=== PATIENT | female | born 1940 | race Caucasian/White ===

== ENCOUNTER → 2016-08-25 | Outpatient (REF) | payer MEDICARE ==
[~2016-08-25] MED LIST: /ALEN70TA; ACET65TA; ASPI81TA3; BABY81CH; CORD200T; PLAV75TA2; THERGRAN; ZITH500T; ZOCO20TA
[2016-08-25 12:35] LABS: ALBUMIN 3.4 GM/DL (3.2-5.2); ANION GAP 7 MEQ/L (8-16); BLOOD UREA NITROGEN 18 MG/DL (7-18); CALCIUM LEVEL 9.1 MG/DL (8.8-10.2); CARBON DIOXIDE LEVEL 30 MEQ/L (21-32); CHLORIDE LEVEL 105 MEQ/L (98-107); CREATININE FOR GFR 0.88 MG/DL (0.55-1.02); GLOMERULAR FILTRATION RATE > 60.0 (>39); GLUCOSE, FASTING 101 MG/DL (83-110); POTASSIUM SERUM 4.2 MEQ/L (3.5-5.1); SODIUM LEVEL 142 MEQ/L (136-145)
== END ==
LOC: M LABDRAW1 11:49
PROVIDERS: ATTEND Nurse Practitioner Family
DX: I48.2 Chronic atrial fibrillation (principal)

== ENCOUNTER → 2016-09-13 | Outpatient (CLI) | payer MEDICARE ==
[~2016-09-13] MED LIST changes: +CARV12.5 PO; +COLA100C5 PO; +ELIQ5TAB PO; +LEVO750T13 PO; +MACR100C43 PO; +SUCR1SS PO; +TRAM50TA2 PO; +ZOFR4TAB3 PO
--- NOTE | 2016-09-13 09:54 | REP ---
Chest two views HISTORY: Bronchiectasis Comparison: 12/24/2015 A diffuse increase in interstitial markings is present in the lungs consistent with chronic interstitial change. The cardiac silhouette is enlarged. The pulmonary vasculature is normal in appearance. The bony structure is intact. IMPRESSION: 1. Chronic interstitial change. 2. Cardiomegaly. Signed by Júnior Hunt MD 09/13/2016 09:45 A
== END ==
LOC: M SMT 09:17
PROVIDERS: ATTEND Internal Medicine Pulmonary Disease
DX: J47.9 Bronchiectasis, uncomplicated (principal); I51.7 Cardiomegaly; J84.9 Interstitial pulmonary disease, unspecified

== ENCOUNTER → 2016-09-22 | Outpatient (REF) | payer MEDICARE | LOC: M LAB REF 17:02 | PROVIDERS: ATTEND Nurse Practitioner Adult Health | DX: J47.9 Bronchiectasis, uncomplicated (principal); R05 Cough ==

== ENCOUNTER → 2016-10-08 | Outpatient (REF) | payer MEDICARE | LOC: M LAB REF 13:13 | PROVIDERS: ATTEND Nurse Practitioner Adult Health | DX: J47.9 Bronchiectasis, uncomplicated (principal) ==

== ENCOUNTER → 2016-11-05 | Outpatient (REF) | payer MEDICARE | LOC: M SFHCPLAZ 12:00 | PROVIDERS: ATTEND Internal Medicine Infectious Disease | DX: J47.1 Bronchiectasis with (acute) exacerbation (principal) ==

== ENCOUNTER 2016-11-20 18:43 | Emergency (ER) | payer MEDICARE ==
[~2016-11-20] VITALS: Ht 165.1 cm; Wt 51.9 kg
[~2016-11-20 18:43] MED LIST changes: -CARV12.5 PO; -COLA100C5 PO; -ELIQ5TAB PO; -LEVO750T13 PO; -MACR100C43 PO; -SUCR1SS PO; -TRAM50TA2 PO; -ZOFR4TAB3 PO
[2016-11-20] MEDS ORDERED: ELIQ5TAB PO (18:54)
[2016-11-20] MEDS ORDERED: LEVO750T13 PO (18:54)
[2016-11-20] MEDS ORDERED: ZOFR4TAB3 PO (18:54)
[2016-11-20] MEDS ORDERED: COLA100C5 PO (18:54)
[2016-11-20] MEDS ORDERED: SUCR1SS PO (18:54)
[2016-11-20] MEDS ORDERED: CARV12.5 PO (18:54)
[2016-11-20] MEDS ORDERED: NS 1,000 ML IV ONE (19:15)
[2016-11-20] MEDS ORDERED: ONDANSETRON 4MG/2ML VIAL (J2405) IV ONE (19:15)
[2016-11-20 19:21] LABS: BASO % 0.2 % (0.0-1.0); EOS # 0.3 K/mm3 (0.0-0.50); EOS % 2.9 % (0.0-3.0); LARGE UNSTAINED CELL # 0.1 K/mm3 (0.0-0.4); LARGE UNSTAINED CELL % 1.2 % (0.0-4.0); LYMPH # 1.1 K/mm3 (1.5-4.5); LYMPH % 11.1 % (24.0-44.0); MEAN CORPUSCULAR HEMOGLOBIN 29.6 pg (27.0-33.0); MEAN CORPUSCULAR VOLUME 87.1 fl (80.0-96.0); MONO # 0.4 K/mm3 (0.0-0.8); MONO % 4.1 % (0.0-5.0); NEUTROPHILS # 7.9 K/mm3 (1.8-7.7); NEUTROPHILS % 80.4 % (36.0-66.0); PLATELET COUNT, AUTOMATED 318 k/mm3 (150-450); RED CELL DISTRIBUTION WIDTH 13.2 % (11.5-14.5); WHITE BLOOD COUNT 9.9 K/mm3 (4.0-10.0)
[2016-11-20 19:45] LABS: ALBUMIN 3.3 GM/DL (3.2-5.2); ALBUMIN/GLOBULIN RATIO 0.89 (1.00-1.93); ALKALINE PHOSPHATASE 83 U/L (45-117); ALT/SGPT 12 U/L (12-78); AMYLASE 107 U/L (25-115); ANION GAP 11 MEQ/L (8-16); AST/SGOT 12 U/L (15-37); BILIRUBIN,DIRECT 0.3 MG/DL (0.0-0.2); BILIRUBIN,TOTAL 1.1 MG/DL (0.2-1.0); BLOOD UREA NITROGEN 11 MG/DL (7-18); CARBON DIOXIDE LEVEL 28 MEQ/L (21-32); CHLORIDE LEVEL 102 MEQ/L (98-107); CREATININE FOR GFR 0.81 MG/DL (0.55-1.02); GLOMERULAR FILTRATION RATE > 60.0 (>39); GLUCOSE, FASTING 100 MG/DL (83-110); POTASSIUM SERUM 3.3 MEQ/L (3.5-5.1); SODIUM LEVEL 141 MEQ/L (136-145)
--- NOTE | 2016-11-20 19:49 | REP ---
Clinical: Abdominal pain. Technique: Upright view of the chest with supine and upright views of the abdomen and pelvis. Findings: Frontal upright view of the chest compared to 09/13/2016 demonstrates diffuse chronic interstitial changes and fibrosis. No free air below diaphragm to suspect pneumoperitoneum. Supine and upright views of the abdomen and pelvis demonstrate nonspecific bowel gas pattern. 2 mm nonobstructing right renal calculus suggested. Phleboliths noted in the pelvis. No organomegaly. Skeletal structures demonstrate age-related degenerative changes. Impression: Nonspecific bowel gas pattern. Chronic changes as above. Signed by Kwesi Morrison MD 11/20/2016 07:40 P
[2016-11-20] MEDS ORDERED: MACR100C43 PO (20:00)
[2016-11-20] MEDS ORDERED: MAGNESIUM CITRATE 300 ML BTL PO ONE (20:00)
[2016-11-20] MEDS ORDERED: NITROFURANTOIN (MACROBID) 100 MG CAP PO ONE (20:00)
[2016-11-20] MEDS ORDERED: TRAM50TA2 PO (20:00)
[2016-11-20 20:06] VITALS: BP 135/66
== END 2016-11-20 20:17 | disposition home or self-care (01) ==
LOC: M ED 18:43
DX: N39.0 Urinary tract infection, site not specified (principal); R63.0 Anorexia; I51.9 Heart disease, unspecified; Z79.899 Other long term (current) drug therapy; Z86.73 Personal history of transient ischemic attack (TIA), and cerebral infarction without residual deficits
CPT/HCPCS: 74022; 80048; 80076; 81001; 82150; 83690; 85025; 87086; 96374; 99283; J2405

== ENCOUNTER → 2017-02-14 | Outpatient (REF) | payer MEDICARE ==
[~2017-02-14] MED LIST changes: +CARV12.5 PO; +COLA100C5 PO; +ELIQ5TAB PO; +LEVO750T13 PO; +MACR100C43 PO; +SUCR1SS PO; +TRAM50TA2 PO; +ZOFR4TAB3 PO
[2017-02-14 12:10] LABS: MEAN CORPUSCULAR HEMOGLOBIN 29.1 pg (27.0-33.0); MEAN CORPUSCULAR HGB CONC 31.2 g/dl (32.0-36.5); MEAN CORPUSCULAR VOLUME 93.3 fl (80.0-96.0); PLATELET COUNT, AUTOMATED 288 10^3/uL (150-450); RED CELL DISTRIBUTION WIDTH 14.9 % (11.5-14.5); WHITE BLOOD COUNT 7.4 10^3/uL (4.0-10.0)
[2017-02-14 12:59] LABS: ALBUMIN 3.6 GM/DL (3.2-5.2); ALKALINE PHOSPHATASE 80 U/L (45-117); ALT/SGPT 16 U/L (12-78); ANION GAP 7 MEQ/L (8-16); AST/SGOT 18 U/L (7-37); BILIRUBIN,TOTAL 0.6 MG/DL (0.2-1.0); BLOOD UREA NITROGEN 14 MG/DL (7-18); CALCIUM LEVEL 9.3 MG/DL (8.8-10.2); CARBON DIOXIDE LEVEL 31 MEQ/L (21-32); CHLORIDE LEVEL 105 MEQ/L (98-107); CHOLESTEROL LEVEL 177 MG/DL (<200); CREATININE FOR GFR 0.83 MG/DL (0.55-1.02); GLOMERULAR FILTRATION RATE > 60.0 (>39); GLUCOSE, FASTING 82 MG/DL (83-110); POTASSIUM SERUM 4.2 MEQ/L (3.5-5.1); SODIUM LEVEL 143 MEQ/L (136-145); TOTAL PROTEIN 7.2 GM/DL (6.4-8.2); TRIGLYCERIDES LEVEL 193 MG/DL (<150)
== END ==
LOC: M SFHCPLAZ 09:03
PROVIDERS: ATTEND Internal Medicine
DX: E78.00 Pure hypercholesterolemia, unspecified (principal); J47.9 Bronchiectasis, uncomplicated; R94.6 Abnormal results of thyroid function studies; M81.0 Age-related osteoporosis without current pathological fracture

== ENCOUNTER → 2017-02-25 | Outpatient (CLI) | payer MEDICARE ==
--- NOTE | 2017-02-25 08:31 | REPMRS ---
Patient History The patient states she has not had a clinical breast exam in over a year. Patient is postmenopausal. No known family history of cancer. Digital Woman Screen Mammo: February 25, 2017 - Exam #: [id number] Bilateral CC and MLO view(s) were taken. Technologist: Layne Monterroso, Technologist Prior study comparison: October 15, 2015, digital woman screen mammo performed at [facility]. October 11, 2014, digital woman screen mammo performed at [facility]. February 09, 2013, digital woman screen mammo performed at [facility]. FINDINGS: There are scattered fibroglandular densities. There is a pacemaker power plant projecting over the left axilla on the MLO view.There has been no change in the appearance of the mammogram from the prior studies. There is a mild amount of scattered fibroglandular density which is fairly symmetric. There is no interval development of dominant mass, architectural distortion, or clustered microcalcification suggestive of malignancy. ASSESSMENT: BI-RADS/ACR category 2 mammogram. Benign finding(s). Recommendation Routine screening mammogram in 1 year (for women over age 40). This mammogram was interpreted with the aid of an FDA-approved computer-aided dectection system. Electronically Signed By: Emre Bocanegra MD 02/25/17 [id number]
--- NOTE | 2017-03-02 10:52 | DEXA ---
AP SPINE L1 - L4 1.173 -0.2 1.6 LT FEMUR TOTAL 0.899 -0.9 0.9 RT FEMUR TOTAL 0.807 -1.6 0.1 TOTAL BODY TOTAL OTHER COMMENTS: Normal bone densitometry of the spine. Normal bone densitometry of the left hip. There is low bone density of the right hip. The decreased density of the spine does represent a significant change. The decreased density of the left hip does represent a significant change. The decreased density of the right hip does represent a significant change. The density of the spine is decreased 5.9% since the initial exam on 07/26/2000. The spine density has decreased 5.9% since the most recent exam on 09/01/2010. The density of the left hip has decreased 9.9% since the initial exam on 2000. The density of the left hip has decreased 9.7% since the most recent exam on . The density of the right hip has decreased 16.0% since the initial exam on 07/26. The density of the right hip has decreased 11.7% since the most recent exam on 09/01/2010. FOLLOW-UP: Recommendation for the next bone density exam: 2 years. GILBERTO
== END ==
LOC: M WHC 07:52
PROVIDERS: ATTEND Internal Medicine
DX: Z12.31 Encounter for screening mammogram for malignant neoplasm of breast (principal); Z78.0 Asymptomatic menopausal state; Z79.52 Long term (current) use of systemic steroids
CPT/HCPCS: 77080; G0202

== ENCOUNTER → 2017-12-12 | Outpatient (REF) | payer MEDICARE ==
[2017-12-12 11:17] LABS: HEMATOCRIT 42.5 % (36.0-47.0); HEMOGLOBIN 13.4 g/dl (12.0-15.5); MEAN CORPUSCULAR HEMOGLOBIN 29.3 pg (27.0-33.0); MEAN CORPUSCULAR HGB CONC 31.5 g/dl (32.0-36.5); PLATELET COUNT, AUTOMATED 304 10^3/uL (150-450); RED BLOOD COUNT 4.57 10^6/uL (4.00-5.40); RED CELL DISTRIBUTION WIDTH 14.1 % (11.5-14.5); WHITE BLOOD COUNT 9.1 10^3/uL (4.0-10.0)
[2017-12-12 12:00] LABS: ALBUMIN/GLOBULIN RATIO 0.81 (1.00-1.93); ALKALINE PHOSPHATASE 67 U/L (45-117); ALT/SGPT 20 U/L (12-78); ANION GAP 8 MEQ/L (8-16); AST/SGOT 15 U/L (7-37); BLOOD UREA NITROGEN 12 MG/DL (7-18); CALCIUM LEVEL 8.7 MG/DL (8.8-10.2); CARBON DIOXIDE LEVEL 29 MEQ/L (21-32); CHLORIDE LEVEL 106 MEQ/L (98-107); CREATININE FOR GFR 0.84 MG/DL (0.55-1.30); GLOMERULAR FILTRATION RATE > 60.0 (>39); GLUCOSE, FASTING 76 MG/DL (70-100); POTASSIUM SERUM 3.9 MEQ/L (3.5-5.1); SODIUM LEVEL 143 MEQ/L (136-145); TOTAL PROTEIN 6.7 GM/DL (6.4-8.2)
[2017-12-13 14:16] LABS: Lyme Disease IgG/IgM Antibodie <0.91 ISR (0.00-0.90); Lyme Disease IgM Ab Quantitati <0.80 index (0.00-0.79)
== END ==
LOC: M LABDRAW1 10:55
DX: R53.83 Other fatigue (principal)
CPT/HCPCS: 84443

== ENCOUNTER → 2017-12-15 | Outpatient (CLI) | payer MEDICARE | LOC: M RAD 06:44 | DX: R91.8 Other nonspecific abnormal finding of lung field (principal); J47.9 Bronchiectasis, uncomplicated; J98.4 Other disorders of lung | CPT/HCPCS: 71250 ==

== ENCOUNTER → 2018-03-08 | Outpatient (CLI) | payer MEDICARE ==
[~2018-03-08] MED LIST changes: +ZOFR4TAB14 PO; -ZOFR4TAB3 PO
--- NOTE | 2018-03-08 10:28 | REPMRS ---
Patient History The patient states she had a clinical breast exam in 09/2017. Patient is postmenopausal. No known family history of cancer. No Hormone Replacement Therapy Digital Woman Screen Mammo: March 08, 2018 - Exam #: [id number] Bilateral CC and MLO view(s) were taken. Technologist: Marcie Elmore, Technologist Prior study comparison: February 25, 2017, digital woman screen mammo performed at [facility]. October 15, 2015, digital woman screen mammo performed at [facility]. October 11, 2014, digital woman screen mammo performed at [facility]. FINDINGS: There are scattered fibroglandular densities. There is a pacemaker power plant projecting over the left axilla on the MLO view. There has been no change in the appearance of the mammogram from the prior studies. There is a mild amount of scattered fibroglandular density which is fairly symmetric. There is no interval development of dominant mass, architectural distortion, or clustered microcalcification suggestive of malignancy. 3-D tomosynthesis shows no additional findings. Assessment: BI-RADS/ACR category 2 mammogram. Benign finding(s). Recommendation Routine screening mammogram of both breasts in 1 year (for women over age 40). This patient's Lifetime Breast Cancer RIsk is estimated at 2.7 %. This mammogram was interpreted with the aid of an FDA-approved computer-aided dectection system. Electronically Signed By: Emre Bocanegra MD 03/08/18 [id number]
== END ==
LOC: M WHC 09:24
PROVIDERS: ATTEND Obstetrics & Gynecology
DX: Z12.31 Encounter for screening mammogram for malignant neoplasm of breast (principal); Z78.0 Asymptomatic menopausal state; Z95.0 Presence of cardiac pacemaker

== ENCOUNTER → 2018-11-14 | Outpatient (REF) | payer MEDICARE ==
[2018-11-14 10:31] LABS: HEMATOCRIT 42.1 % (36.0-47.0); HEMOGLOBIN 13.1 g/dl (12.0-15.5); MEAN CORPUSCULAR HEMOGLOBIN 29.1 pg (27.0-33.0); MEAN CORPUSCULAR HGB CONC 31.1 g/dl (32.0-36.5); MEAN CORPUSCULAR VOLUME 93.6 fl (80.0-96.0); PLATELET COUNT, AUTOMATED 298 10^3/uL (150-450); WHITE BLOOD COUNT 7.8 10^3/uL (4.0-10.0)
[2018-11-14 11:05] LABS: ALBUMIN 3.2 GM/DL (3.2-5.2); ALT/SGPT 14 U/L (12-78); BILIRUBIN,TOTAL 0.6 MG/DL (0.2-1.0); BLOOD UREA NITROGEN 20 MG/DL (7-18); CALCIUM LEVEL 9.2 MG/DL (8.8-10.2); CARBON DIOXIDE LEVEL 31 MEQ/L (21-32); CHLORIDE LEVEL 106 MEQ/L (98-107); CHOLESTEROL LEVEL 145 MG/DL (<200); CHOLESTEROL RISK RATIO 2.377 (<5); CREATININE FOR GFR 0.81 MG/DL (0.55-1.30); GLOMERULAR FILTRATION RATE > 60.0 (>39); GLUCOSE, FASTING 88 MG/DL (70-100); HDL CHOLESTEROL 61 MG/DL (>40); LDL CHOLESTEROL 58 MG/DL (<100); MAGNESIUM LEVEL 2.2 MG/DL (1.8-2.4); NON-HDL-C 84 MG/DL; POTASSIUM SERUM 4.1 MEQ/L (3.5-5.1); SODIUM LEVEL 143 MEQ/L (136-145); TOTAL PROTEIN 6.7 GM/DL (6.4-8.2); TRIGLYCERIDES LEVEL 131 MG/DL (<150)
[2018-11-14 11:23] LABS: TOTAL 25(OH) VITAMIN D 26.8 NG/ML (30.0-100.0)
== END ==
LOC: M SFHCPLAZ 08:26
PROVIDERS: ATTEND Internal Medicine
DX: R53.83 Other fatigue (principal); E78.00 Pure hypercholesterolemia, unspecified; I49.5 Sick sinus syndrome; M81.0 Age-related osteoporosis without current pathological fracture

== ENCOUNTER → 2019-05-10 | Outpatient (REF) | payer MEDICARE ==
[2019-05-10 10:22] LABS: HEMATOCRIT 41.9 % (36.0-47.0); MEAN CORPUSCULAR HEMOGLOBIN 29.3 pg (27.0-33.0); MEAN CORPUSCULAR VOLUME 94.4 fl (80.0-96.0); PLATELET COUNT, AUTOMATED 286 10^3/uL (150-450); RED BLOOD COUNT 4.44 10^6/uL (4.00-5.40); WHITE BLOOD COUNT 8.2 10^3/uL (4.0-10.0)
[2019-05-10 10:47] LABS: BLOOD UREA NITROGEN 24 MG/DL (7-18); CALCIUM LEVEL 9.3 MG/DL (8.8-10.2); CARBON DIOXIDE LEVEL 31 MEQ/L (21-32); CHLORIDE LEVEL 106 MEQ/L (98-107); CREATININE FOR GFR 0.87 MG/DL (0.55-1.30); GLOMERULAR FILTRATION RATE > 60.0 (>39); GLUCOSE, FASTING 73 MG/DL (70-100); MAGNESIUM LEVEL 2.4 MG/DL (1.8-2.4); SODIUM LEVEL 141 MEQ/L (136-145)
== END ==
LOC: M LABDRAW1 08:29
PROVIDERS: ATTEND Physician Assistant
DX: I48.21 Permanent atrial fibrillation (principal); Z79.899 Other long term (current) drug therapy

== ENCOUNTER 2020-01-27 08:22 | Inpatient (IN) | payer MEDICARE ==
[~2020-01-27] VITALS: Ht 165.1 cm; Wt 56.6 kg
[2020-01-27] MEDS ORDERED: ISOVUE-370 76% 100ML VIAL As Ordered ONE (08:45)
[2020-01-27 08:52] LABS: BASO % 0.4 % (0.0-1.0); EOS # 0.2 10^3/uL (0.0-0.5); EOS % 3.4 % (0.0-3.0); HEMATOCRIT 45.3 % (36.0-47.0); HEMOGLOBIN 13.8 g/dl (12.0-15.5); LYMPH # 1.7 10^3/uL (1.5-5.0); LYMPH % 24.1 % (24.0-44.0); MEAN CORPUSCULAR HEMOGLOBIN 29.2 pg (27.0-33.0); MEAN CORPUSCULAR HGB CONC 30.5 g/dl (32.0-36.5); MEAN CORPUSCULAR VOLUME 95.8 fl (80.0-96.0); MONO # 0.8 10^3/uL (0.0-0.8); MONO % 10.9 % (0.0-5.0); NEUTROPHILS # 4.3 10^3/uL (1.5-8.5); NEUTROPHILS % 60.8 % (36.0-66.0); PLATELET COUNT, AUTOMATED 259 10^3/uL (150-450); RED BLOOD COUNT 4.73 10^6/uL (4.00-5.40); WHITE BLOOD COUNT 7.1 10^3/uL (4.0-10.0)
--- NOTE | 2020-01-27 09:10 | REP ---
INDICATION: CVA - Nursing interventions must not delay CT COMPARISON: 07/02/2009 TECHNIQUE: Axial noncontrast images from the skull base to the thoracic inlet with coronal reformations. This CT examination was performed using the following dose reduction techniques: Automated exposure control, adjustment of mA and/or kv according to the patient's size, and use of iterative reconstruction technique. FINDINGS: Age-related atrophy and microvascular ischemic changes are appreciated along with low-density changes in the right temporoparietal region suggesting old infarction. The ventricles and sulci are symmetric. Bustos-white differentiation is maintained. There is no evidence for acute intracranial hemorrhage, mass/mass effect, pathology or infarction. No extra-axial fluid collection. Calvarium is intact. There is significant opacification of the bilateral maxillary, ethmoid, and sphenoid sinuses with high density material consistent with chronic sinusitis possibly fungal. IMPRESSION: 1. 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 2. No acute intracranial hemorrhage, infarction, or mass/mass effect. 3. Chronic sinusitis possibly fungal. <Electronically signed by Kwesi Morrison > 01/27/20 0906
--- NOTE | 2020-01-27 09:23 | REP ---
INDICATION: CVA - Nursing interventions must not delay CT. COMPARISON: None. TECHNIQUE: CT contrast dose: 100 ml of intravenous Isovue 370. Axial contrast-enhanced images were obtained from the skull base to the vertex with coronal reformations using 100 cc Isovue 370 intravenous contrast material. Maximal intensity projection and multiplanar re-formation images along with 3-D rendered imaging of the arterial vasculature. FINDINGS: The [id number] and visualized vertebrobasilar system appear relatively intact and within normal limits. Vasculature to the bilateral hemispheres appear symmetric. No obvious arteriovenous malformation or aneurysm detected. Remainder of the examination appears essentially normal. Incidental chronic sinusitis involving the maxillary, ethmoid and sphenoid sinuses noted. IMPRESSION: Essentially normal CT angiography of the head. No obvious arteriovenous malformation or aneurysm. Vasculature to the bilateral hemispheres and posterior fossa appear symmetric. <Electronically signed by Kwesi Morrison > 01/27/20 0919
[2020-01-27 09:26] LABS: INR 1.06
[2020-01-27 09:27] LABS: PARTIAL THROMBOPLASTIN TIME 28.6 SECONDS (24.2-38.5)
--- NOTE | 2020-01-27 09:29 | REP ---
INDICATION: CVA - Nursing interventions must not delay CT. COMPARISON: None. TECHNIQUE: Axial contrast-enhanced images were obtained from the thoracic inlet to the skull base with coronal and sagittal reformations using 100 cc Isovue 370 intravenous contrast material. Maximal intensity projection and multiplanar re-formation images along with 3-D rendered imaging of the arterial vasculature. This CT examination was performed using the following dose reduction techniques: Automated exposure control, adjustment of mA and/or kv according to the patient's size, and the use of iterative reconstruction technique. FINDINGS: The common carotid arteries, carotid bulbs and visualized portions of the external and the internal carotid arteries are normal. The vertebral bodies are patent and symmetric. There are no atherosclerotic lesions, areas of significant stenosis or occlusion identified. No obvious vascular abnormality noted. The visualized upper lung zones demonstrate innumerable bilateral nodules and increased interstitial markings highly suspicious for metastatic process versus reticulonodular interstitial diseases. IMPRESSION: 1. Normal CT angiography of the neck. 2. Diffuse reticulonodular interstitial pattern with diffuse scattered nodules. Differential diagnosis includes chronic reticulonodular interstitial diseases versus metastatic disease. <Electronically signed by Kwesi Morrison > 01/27/20 0916
[2020-01-27 09:32] LABS: TROPONIN I 0.04 NG/ML (< 0.10)
--- NOTE | 2020-01-27 09:32 | REP ---
INDICATION: CVA COMPARISON: 12/12/2017 TECHNIQUE: Portable AP view of the chest FINDINGS: Diffuse chronic reticulonodular interstitial changes are appreciated which appears similar to prior examination. Subtle superimposed acute process cannot be excluded. Mediastinum and cardiac silhouette stable. No effusion. No pneumothorax. Skeletal structures intact. IMPRESSION: Diffuse chronic reticulonodular interstitial disease. Subtle superimposed acute process cannot be excluded. No focal consolidation or effusion. <Electronically signed by Kwesi Morrison > 01/27/20 0928
[2020-01-27] MEDS ORDERED: PRED5TA PO (09:47)
[2020-01-27] MEDS ORDERED: SIMV20TA22 PO (09:47)
[2020-01-27] MEDS ORDERED: INCR1INH INH (09:47)
[2020-01-27] MEDS ORDERED: DOCUSATE SODIUM 100 MG CAP PO PRN (11:30)
[2020-01-27 11:43] VITALS: BP 174/77
--- NOTE | 2020-01-27 11:57 | HPEPDOC ---
[facility] Medical History & Physical Date of Admission Jan 27, 2020 Date of Service: Jan 27, 2020 Attending Physician: Dana Luo MD History and Physical CHIEF COMPLAINT: Right-sided weakness HISTORY OF PRESENT ILLNESS: Patient is a 79-year-old female with past nuchal history of TIA 10 years ago, hypertension, hyperlipidemia, bronchiectasis, history of bradycardia/sick sinus syndrome who presented to [facility] emergency room after experiencing acute onset of right-sided weakness and shaking this morning. Per patient at approximately 7:45 in the morning she experienced sudden onset of right leg weakness and shaking uncontrollably. She also had some right arm weakness with the drift. She states she attempted to step forward but fell back instead. Her was present and helped her up off the floor; however, when she attempted to walk again she continue to fill the right leg and right arm weakness. Tatian denied blurry vision, headache, dizziness, loss of consciousness, lightheaded ness, medication noncompliance, chest pain, fevers, chills, nausea, vomiting, diarrhea, increased stressors. She admits to shortness of breath and cough but she has a history of bronchiectasis and this is chronic. Her called 911 and she was brought to the emergency room. In the emergency room her blood pressure systolic was greater than 181/92, vital signs were within normal limits. The patient had a 1 on an NIHS scale due to some mild right leg and right arm weakness on exam. CT head neg for acute intracranial abnormality. She is on Eliquis 5 mg twice a day for her history of TIA and therefore no TPA was able to be given. Neurology was consult it over the phone and suggested adding a baby aspirin to her daily regimen of Eliquis and statin. Due to the patient having a ventricular pacemaker the patient was unable to go for MRI or MRA of the brain. It was advised for the patient to be admitted and to allow permissive hypertension for the next 2448 hours. The patient was admitted for right side weakness, rule out CVA. REVIEW OF SYSTEMS: CONSTITUTIONAL: Denies lack of energy, unexplained weight gain or weight loss, loss of appetite, fever, night sweats EYES: Denies eye drainage, eye pain, visual changes, dry/irritated eye EARS, NOSE, MOUTH, THROAT: Denies difficulty hearing, ringing in ears, mouth sores, loose teeth, sore throat, facial numbness or pain NECK: Denies swollen glands CARDIOVASCULAR: Denies irregular heartbeat, racing heart, chest pains, swelling of feet or legs, pain in legs with walking RESPIRATORY: Denies shortness of breath, night sweats, wheezing, sputum production, oxygen at home, coughing up blood, cough lasting > 1 month GASTROINTESTINAL: Denies abdominal pain, constipation, bloody stool, diarrhea, heartburn, nausea, vomiting GENITOURINARY: Denies painful urination, bloody urine, frequent urination, urgency, leaking urine, impotence MUSCULOSKELETAL: Denies joint pain, muscle pain, leg swelling INTEGUMENTARY: Denies rash, itching, new skin lesion, change in existing skin lesion, hair loss or increase, breast changes. NEUROLOGICAL: Denies headaches, dizziness, numbness or tingling PSYCHIATRIC: Denies depression, anxiety, recurrent bad thoughts, mood swings, hallucinations PAST MEDICAL HISTORY: 1. TIA 10 years ago 2. HTN 3. HLD 4. Hx of bradycardia/SSS with ventricular PM 5. Bronchiectasis PAST SURGICAL HISTORY: 1. Ventricular PM placement FAMILY HISTORY: Father: emphysema, CAD. at 76 Mother: "Bleeding disorder". at 56 y/o SOCIAL HISTORY: Denies smoking, alcohol or drug use hx. Lives locally with her . Ambulates independently. PCP. Dr. Roland, Cardiology-Dr. Nick. FULL CODE. ALLERGIES: Please see below. HOME MEDICATIONS: Please see below. PHYSICAL EXAMINATION: VS: Please see below CONSTITUTIONAL: No acute distress, resting comfortably, AAO x 3 EYES: PERRLA, EOM intact HENT, MOUTH: Normocephalic, atraumatic, moist mucous membranes, NECK: SUPPLE, no JVD, no lymphadenopathy, no carotid bruit CV: Regular rate and rhythm, S1S2 normal, no murmurs/rubs/gallops RESPIRATORY: Clear to auscultation bilaterally, no rales/rhonchi/wheezes GI: BS positive in 4 quadrants, soft, nontender, nondistended, no rebound or guarding, no organomegaly : Deferred MUSCULOSKELETAL: Normal ROM. No cyanosis, clubbing, swelling, joint deformity, extremity edema INTEGUMENTARY: Intact, no rashes, no lesions, no erythema NEUROLOGIC: 4/5 in strength of the right upper extremity and right lower extremity 5/5 in left her and lower extremities. No sensory or motor deficits. Cranial Nerves II-XII are intact. Reflexes present and wnl in all ext PSYCHIATRIC: Mood and affect are normal LABORATORY DATA: Please see below IMAGING: CXR : Diffuse chronic reticulonodular interstitial disease. Subtle superimposed acute process cannot be excluded. No focal consolidation or effusion. CT head: 1. 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 2. No acute intracranial hemorrhage, infarction, or mass/mass effect. 3. Chronic sinusitis possibly fungal. CTA neck: 1. Normal CT angiography of the neck. 2. Diffuse reticulonodular interstitial pattern with diffuse scattered nodules. Differential diagnosis includes chronic reticulonodular interstitial diseases versus metastatic disease. ASSESSMENT: 79-year-old female with past nuchal history of TIA 10 years ago, hypertension, hyperlipidemia, bronchiectasis, history of bradycardia/sick sinus syndrome admitted for right side weakness, rule out CVA. PLAN: #Right side weakness, r/o CVA likely 2/2 to hypertensive emergency -Hx of known TIA and looks like prior CVA on CT head above -BP on arrival 181/92, patient states BP is normally very controlled -Persistent right upper and lower ext weakness, unable to give Tpa due to being on Eliquis BID at home -Unable to perform MRI/MRA brain 2/2 to ventricular PM -C/w eliquis BID, statin, adding baby ASA to regimen per neurology -F/u echocardiogram -Allow permissive HTN for next 24-48 hours to keep BP between 140-170 mmHg. -Holding home antihypertensives for now and on gentle IVF hydration. -Neuro checks, PT/OT, tele #Hypertensive emergency -Known HTN that per patient is reguarly very controlled, compliant with meds -Holding home antihypertensives -C/w plan above #HLD -F/u lipid panel, HbA1c -C/w statin #Bronchiectasis -Per patient, no smoking history. No known cause of her diagnosis -C/w home prednisone, f/u with pulmonary o/p # Hx of SSS/bradycardia -Currently ventricularly paced -Follows with Dr. Nick o/p #DVT px -Eliquis BID DISPOSITION: Admitted under inpatient status. Plan is PT/OT, discharge home if able when medically cleared. Vital Signs Vital Signs Date Time Temp Pulse Resp B/P (MAP) Pulse Ox O2 Delivery O2 Flow Rate FiO2 01/27/20 11:16 147/84 (105) 01/27/20 11:15 96.4 69 18 94 Room Air Laboratory Data Labs 24H Laboratory Tests 2 01/27/20 08:40: Immature Granulocyte % (Auto) 0.4, Neutrophils (%) (Auto) 60.8, Lymphocytes (%) (Auto) 24.1, Monocytes (%) (Auto) 10.9H, Eosinophils (%) (Auto) 3.4H, Basophils (%) (Auto) 0.4, Neutrophils # (Auto) 4.3, Lymphocytes # (Auto) 1.7, Monocytes # (Auto) 0.8, Eosinophils # (Auto) 0.2, Basophils # (Auto) 0.0, Nucleated Red Blood Cells % (auto) 0.0, Prothrombin Time 14.0, Prothromb Time International Ratio 1.06, Activated Partial Thromboplast Time 28.6, Total Creatine Kinase 50, Creatine Kinase MB 1.0, Creatine Kinase MB Relative Index 2.00, Troponin I 0.04, SY-Wut-L-Type Natriuretic Peptide 301 01/27/20 09:49: Coronavirus (COVID-19)(PCR) NEGATIVE CBC/BMP Laboratory Tests 01/27/20 08:40 Microbiology Microbiology 01/27/20 Blood Culture, Received Pending 01/27/20 Blood Culture, Received Pending Home Medications Scheduled Apixaban (Eliquis) 5 Mg Tab, 5 MG PO BID Carvedilol (Carvedilol) 12.5 Mg Tab, 12.5 MG PO BID Prednisone (Prednisone) 5 Mg Tablet, 5 MG PO DAILY Simvastatin (Simvastatin) 20 Mg Tablet, 20 MG PO QHS Umeclidinium Worden (Incruse Ellipta) 62.5 Mcg Blst.w.dev, 1 PUFF INH DAILY Scheduled PRN Docusate Sodium (Colace) 100 Mg Cap, 100 MG PO DAILY PRN for CONSTIPATION Allergies Coded Allergies: No Known Drug Allergies (Verified Allergy, Unknown, 01/27/20) A-FIB/CHADSVASC A-FIB History Current/History of A-Fib/PAF?: No Current PO Anticoag Therapy: No Age/Risk Factor Scoring CHADSVASC: CHADSVASC Response (Comments) Value Age Risk Factor Age >/= 75 years old 2 Gender Risk Factor Female 1 Hx of CHF No 0 Hx of HTN Yes 1 Hx of Stroke/TIA/or VTE Yes 2 Hx of Diabetes No 0 Hx of Vascular Disease No 0 Total 6 Treatment Treatment ordered: Other Other anticoagulant ordered: Dana Shi MD Jan 27, 2020 11:57
[2020-01-27] MEDS: APIXABAN 5 MG TAB (ELIQUIS) PO SCH ×2 (12:15→21:12)
[2020-01-27] MEDS: predniSONE 5 MG TAB PO SCH (12:15)
[2020-01-27] MEDS: NS 1,000 ML IV SCH (12:16)
[2020-01-27 16:00] VITALS: BP 148/78
--- NOTE | 2020-01-27 18:59 | ECGEPIP ---
[facility] - ED Test Date: 2020-01-27 Pat Name: JONY ARMSTRONG Department: Room: - Gender: Female [employer] Instructor: milena : 1940 Requested By: Ella Mai Order Number: [id number] Reading MD: Ella Mai Measurements Intervals Micro Rate: 70 P: OK: 0 QRS: -81 QRSD: 149 T: 78 QT: 441 QTc: 476 Interpretive Statements ELECTRONIC VENTRICULAR PACEMAKER ABNORMAL RHYTHM ECG CW 04/16/15 SIMILAR Electronically Signed on 01-27-2020 18:58:50 EST by Ella Mai
[2020-01-27 20:00] VITALS: BP 126/69
[2020-01-27] MEDS: SIMVASTATIN 20 MG TAB PO SCH (21:12)
[2020-01-28] VITALS: BP 117/70
[2020-01-28 04:00] VITALS: BP 145/75
[2020-01-28 04:40] LABS: HEMATOCRIT 42.2 % (36.0-47.0); HEMOGLOBIN 12.9 g/dl (12.0-15.5); MEAN CORPUSCULAR HEMOGLOBIN 28.4 pg (27.0-33.0); MEAN CORPUSCULAR HGB CONC 30.6 g/dl (32.0-36.5); PLATELET COUNT, AUTOMATED 246 10^3/uL (150-450); RED BLOOD COUNT 4.54 10^6/uL (4.00-5.40); WHITE BLOOD COUNT 7.5 10^3/uL (4.0-10.0)
[2020-01-28 05:08] LABS: ALT/SGPT 10 U/L (12-78); BILIRUBIN,TOTAL 0.7 MG/DL (0.2-1.0); BLOOD UREA NITROGEN 11 MG/DL (7-18); CALCIUM LEVEL 8.6 MG/DL (8.8-10.2); CARBON DIOXIDE LEVEL 29 MEQ/L (21-32); CHLORIDE LEVEL 110 MEQ/L (98-107); GLOMERULAR FILTRATION RATE > 60.0 (>39); GLUCOSE, FASTING 83 MG/DL (70-100); POTASSIUM SERUM 3.8 MEQ/L (3.5-5.1); SODIUM LEVEL 143 MEQ/L (136-145); TOTAL PROTEIN 6.2 GM/DL (6.4-8.2)
[2020-01-28 07:58] VITALS: BP 146/80
[2020-01-28] MEDS: APIXABAN 5 MG TAB (ELIQUIS) PO SCH ×2 (08:38→20:39)
[2020-01-28] MEDS: predniSONE 5 MG TAB PO SCH (08:38)
[2020-01-28] MEDS: NS 1,000 ML IV SCH (08:39)
[2020-01-28] MEDS: ASPIRIN 81 MG ENTERIC TAB PO SCH (09:00)
[2020-01-28 14:44] LABS: VITAMIN B12 LEVEL 353 PG/ML (247-911)
[2020-01-28 16:00] VITALS: BP 133/74
--- NOTE | 2020-01-28 17:18 | IPNPDOC ---
Date Seen The patient was seen on 01/28/20. Progress Note SUBJECTIVE: Ms. Obando was seen and examined at bedside. She reports resolution of right sided upper and lower extremity weakness from yesterday. She reports normal cough and sputum production from dx of bronchiectasis. She denies fevers, chills, chest pain, SOB, dizziness, headache, blurry vision, weakness and numbness/tingling. OBJECTIVE: VITALS: See Below GENERAL: Pt is seen sitting up in bed. No acute respiratory distress. HEENT: PERRL. EOM intact. No lymphadenopathy appreciated. CV: S1S2 present. RRR. No murmurs, rubs or gallops appreciated. LUNGS: Rhonchi heard in upper lung snell. No wheezes, rhonchi or crackles heard in other lung snell. ABDOMEN: Non-tender, non-distended abdomen. Normoactive bowel sounds heard in all 4 quadrants. EXTREMITIES: No edema noted. PSYCH: Normal mood/affect, AAOx3 NEURO: No focal neurologic deficits noted. Normal CN II-XII. 5/5 strength b ilateral and equal in UE and LE. CTA HEAD: FINDINGS: The [id number] and visualized vertebrobasilar system appear relatively intact and within normal limits. Vasculature to the bilateral hemispheres appear symmetric. No obvious arteriovenous malformation or aneurysm detected. Remainder of the examination appears essentially normal. Incidental chronic sinusitis involving the maxillary, ethmoid and sphenoid sinuses noted. IMPRESSION: Essentially normal CT angiography of the head. No obvious arteriovenous malformation or aneurysm. Vasculature to the bilateral hemispheres and posterior fossa appear symmetric. ASSESSMENT/PLAN: Ms. Obando is a 79 year old female with a PMH of TIA 10 years ago, HTN, HLD, bronchiectasis, hx of bradycardia/sick sinus syndrome with ventricular pacemaker implantation and atrial fibrillation who presented with right sided weakness concerning for CVA. Pt admitted for further work up and rule out of CVA. # Right sided weakness/numbness: TIA vs CVA vs osteoporotic cervical radiculopathy - Resolution of weakness on examination today - Primary care records reviewed, including recent cardiology visit noting that the patient has atrial fibrillation - CT head showed evidence for small [id number] infarction with no acute intracranial hemorrhage, infarction or mass effect. -MRI/MRA unable to be performed due to pacemaker implantation. CTA Head perfo rmed instead and found to be normal -Vitamin B12 wnl, rules out peripheral neuropathy -Continue with simvastatin 20 mg PO QHS, eliquis 5 mg BID - ASA 81 mg PO DAILY added to regimen per neurology recommendation. -2D echocardiogram pending -Neuro checks Q4H -Cleared by PT/OT - F/U with PCP for osteoporosis/DEXA scan to rule out cervical radiculopathy # Hypertension - 181/92 on arrival to ED which has improved to 146/80 - Pt is usually well controlled and compliant with medications. - Will restart home Coreg tonight # Hx of SSS/bradycardia with ventricular pacemaker implanted - Pacemaker interrogation done, no obvious events # Atrial fibrillation - Continue with Eliquis 5 mg BID # Bronchiectasis likely 2/2 past amiodarone use: - Continue with home prednisone. - F/u with pulmonary outpatient # HLD - Continue with simvastatin 20 mg PO QHS DVT PROPHYLAXIS: TEDs and Sequentials / Eliquis DISPO: Pending ECHO. Likely discharge home in 24hrs VS, I&O, 24H, Fishbone Vital Signs/I&O Vital Signs Date Time Temp Pulse Resp B/P (MAP) Pulse Ox O2 Delivery O2 Flow Rate FiO2 01/28/20 07:58 97.6 70 18 146/80 (102) 93 Room Air I&O- Last 24 Hours up to 6 AM 01/28/20 06:00 Intake Total 1300 ml Output Total 950 ml Balance 350 ml Laboratory Data 24H LABS Laboratory Tests 2 01/28/20 04:30: Nucleated Red Blood Cells % (auto) 0.0, Anion Gap 4L, Glomerular Filtration Rate > 60.0, Calcium Level 8.6L, Total Bilirubin 0.7, Aspartate Amino Transf (AST/SGOT) 15, Alanine Aminotransferase (ALT/SGPT) 10L, Alkaline Phosphatase 67, Total Protein 6.2L, Albumin 3.0L, Albumin/Globulin Ratio 0.9L, Vitamin B12 Level 353 CBC/BMP Laboratory Tests 01/28/20 04:30 Microbiology Microbiology 01/27/20 Blood Culture - Preliminary, Resulted No growth after 24 hours . All specim... 01/27/20 Blood Culture - Preliminary, Resulted No growth after 24 hours . All specim... GME ATTESTATION GME ATTESTATION My faculty preceptor for this patient encounter was physically present during the encounter and was fully available. All aspects of the patient interview, examination, medical decision making process, and medical care plan development were reviewed and approved by the faculty preceptor. The faculty preceptor is aware and concurs with the plan as stated in the body of this note and will attest to such by his/her cosignature. ATTENDING NOTE Patient was seen and examined by me personally with the students and the reside nts. Agree with the above assessment and plan. EMILE VARGAS MD Jan 28, 2020 17:18 PEEWEE LEON MD Feb 01, 2020 11:13
[2020-01-28 20:00] VITALS: BP 146/78
[2020-01-28] MEDS: SIMVASTATIN 20 MG TAB PO SCH (20:38)
[2020-01-28] MEDS: CARVedilol 12.5 MG TAB PO SCH (20:39)
[2020-01-29] VITALS: BP 146/78
[2020-01-29 04:00] VITALS: BP 131/71
[2020-01-29 05:33] LABS: HEMATOCRIT 41.5 % (36.0-47.0); HEMOGLOBIN 12.8 g/dl (12.0-15.5); MEAN CORPUSCULAR HEMOGLOBIN 28.4 pg (27.0-33.0); MEAN CORPUSCULAR HGB CONC 30.8 g/dl (32.0-36.5); MEAN CORPUSCULAR VOLUME 92.2 fl (80.0-96.0); PLATELET COUNT, AUTOMATED 226 10^3/uL (150-450)
[2020-01-29 05:58] LABS: ALBUMIN 2.7 GM/DL (3.2-5.2); ALT/SGPT 10 U/L (12-78); BILIRUBIN,TOTAL 0.9 MG/DL (0.2-1.0); BLOOD UREA NITROGEN 12 MG/DL (7-18); CALCIUM LEVEL 8.4 MG/DL (8.8-10.2); CARBON DIOXIDE LEVEL 27 MEQ/L (21-32); CHLORIDE LEVEL 110 MEQ/L (98-107); CREATININE FOR GFR 0.84 MG/DL (0.55-1.30); GLOMERULAR FILTRATION RATE > 60.0 (>39); GLUCOSE, FASTING 84 MG/DL (70-100); POTASSIUM SERUM 3.8 MEQ/L (3.5-5.1); SODIUM LEVEL 142 MEQ/L (136-145); TOTAL PROTEIN 6.3 GM/DL (6.4-8.2)
[2020-01-29 08:00] VITALS: BP 131/68
[2020-01-29] MEDS ORDERED: ASPI81TAEC PO (08:44)
[2020-01-29 09:13] VITALS: BP 131/68
[2020-01-29] MEDS: ASPIRIN 81 MG ENTERIC TAB PO SCH (09:13)
[2020-01-29] MEDS: APIXABAN 5 MG TAB (ELIQUIS) PO SCH (09:13)
[2020-01-29] MEDS: CARVedilol 12.5 MG TAB PO SCH (09:13)
[2020-01-29] MEDS: predniSONE 5 MG TAB PO SCH (09:14)
--- NOTE | 2020-01-29 16:42 | DS.PDOC ---
Discharge Summary General Date of Admission Jan 27, 2020 at 10:07 Date of Discharge January 29, 2020 Attending Physician: PEEWEE LEON MD Discharge Summary Discharge Summary: PROCEDURES PERFORMED DURING STAY: None ADMITTING DIAGNOSES: - Right sided weakness/numbness: TIA vs CVA vs osteoporotic cervical radiculopathy - Hypertension - Hx of SSS/bradycardia with ventricular pacemaker implanted - Atrial fibrillation -Bronchiectasis likely secondary to past amiodarone use - HLD DISCHARGE DIAGNOSES: - Right sided weakness/numbness: Resolved, likely TIA - Hypertension - Hx of SSS/bradycardia with ventricular pacemaker implanted - Atrial fibrillation -Bronchiectasis likely secondary to past amiodarone use - HLD COMPLICATIONS/CHIEF COMPLAINT: Right sided weakness and numbness HISTORY OF PRESENT ILLNESS: Ms. Obando is a 79 year old female with PMH of TIA 10 years ago, HTN, HLD, bronchiectasis, hx of bradycardia/sick sinus syndrome, and A-fib presented to [facility] ED after experiencing acute onset of right sided- weakness and shaking in right LE that morning. Per patient, at approximately 7:45 in the morning, she experienced sudden onset of right leg weakness and angelika ing uncontrollably. She also had some right arm weakness with the drift. She states she attempted to step forward but fell back instead. Her was present and helped her up off the floor; however, when she attempted to walk again she continued to feel the right leg and right arm weakness. Pt denied blurry vision, headache, dizziness, LOC, lightheadedness, medication noncompliance, chest pain, fevers, chills, nausea, vomting, diarrhea, increased stressors. She admits to shortness of breath and cough but that is normal for her due to dx of bronchiectasis. HOSPITAL COURSE: Ms. Obando was admitted to the hospital for further investigation of CVA vs TIA. CT angiography head was normal. CT head and neck showed no acute intracranial hemorrhage, infarction or mass. 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 BP on arrival was 181/92 and patient states BP is normally very controlled. Held antihypertensives for first 24 hours for concern for stroke to allow for permissive hypertension. Home medications of simvastatin 20 mg PO QHS, eliquis 5 mg BID and prednisone were continued. ASA 81 mg PO daily was added to regimen per neurology recommendation. The following morning she reported complete resolution of right sided weakness from the previous day. She reported normal cough and sputum production from dx of bronchiectasis. BP improved to 146/80 and home Coreg was restarted that night. Pacemaker interrogation showed no obvious events. 2D echocardiogram was comple guilherme and pt should follow up with PCP to review results. Pt deemed stable for discharge home. DISCHARGE MEDICATIONS: Please see below. ALLERGIES: Please see below. PHYSICAL EXAMINATION ON DISCHARGE: VITAL SIGNS: Please see below. GENERAL: Pt is seen sitting up on edge of bed. No acute respiratory distress. HEENT: PERRL. EOM intact. No lymphadenopathy. CARDIOVASCULAR: S1S2 present. RRR. No murmurs, rubs or gallops present. RESPIRATORY: Rhonchi heard in upper lung snell. No wheezes, rhonchi or crackles heard in other lung snell. ABDOMINAL: Non-tender, non-distended abdomen. Normoactive bowel sounds heard in all 4 quadrants. EXTREMITIES: No edema noted. SKIN: No rashes, wounds or lesions. Normal skin finds. NEUROLOGICAL: No focal neurologic deficits noted. Normal CN II-XII. 5/5 strength bilateral and equal in UE and LE. PSYCHIATRIC: Normal mood/affect. AAOx3. LABORATORY DATA: Please see below. IMAGING: All imaging done on 01/27/2020. Neck CTA - Normal CT angiography of the neck. Diffuse reticulonodular interstitial pattern with diffuse scattered nodules. Differential diagnosis in cludes chronic reticulonodular interstitial diseases versus metastatic disease Head CT - Age related atrophy and microvascular ischemic changes along with evidence for small old right-sided infarction. No acute intracranial hemorrhage, infarction, or mass/mass effect. Chronic sinusitis possibly fungal. CXR - Diffuse chronic reticulonodular interstitial disease. Subtle superimposed acute process cannot be excluded. No focal consolidation or effusion. CT Angiography - Essentially normal CT angiography of the head. No obvious arteriovenous malformation or aneurysm. Vasculature to the bilateral hemispheres and posterior fossa appear symmetric PROGNOSIS: Fair ACTIVITY: [As tolerated] DIET: Low-sodium diet DISCHARGE PLAN/DISPOSITION: Home with outpatient PCP follow-up ITEMS TO FOLLOWUP ON OUTPATIENT: 1. Follow-up with PCP in 7-10 days. 2. Patient needs lipid panel and follow up of echocardiogram results. 3. Take all your medications as prescribed. 4. If your symptoms return or your condition worsens, please call your PCP or return to the ED for further evaluation DISCHARGE CONDITION: [Stable] TIME SPENT ON DISCHARGE: Greater than 30 minutes. Vital Signs/I&Os Vital Signs Date Time Temp Pulse Resp B/P (MAP) Pulse Ox O2 Delivery O2 Flow Rate FiO2 01/29/20 09:13 70 131/68 01/29/20 08:00 98.3 18 93 Room Air I&O- Last 24 Hours up to 6 AM 01/29/20 06:00 Intake Total 0 ml Output Total 450 ml Balance -450 ml Laboratory Data Labs 24H Laboratory Tests 2 01/29/20 04:55: Nucleated Red Blood Cells % (auto) 0.0, Anion Gap 5L, Glomerular Filtration Rate > 60.0, Calcium Level 8.4L, Total Bilirubin 0.9, Aspartate Amino Transf (AST/SGOT) 18, Alanine Aminotransferase (ALT/SGPT) 10L, Alkaline Phosphatase 63, Total Protein 6.3L, Albumin 2.7L, Albumin/Globulin Ratio 0.8L CBC/BMP Laboratory Tests 01/29/20 04:55 Microbiology Microbiology 01/27/20 Blood Culture - Preliminary, Resulted No Growth after 48 hours. All Specime... 01/27/20 Blood Culture - Preliminary, Resulted No Growth after 48 hours. All Specime... Discharge Medications Scheduled Apixaban (Eliquis) 5 Mg Tab, 5 MG PO BID, (Reported) Aspirin (Aspirin EC) 81 Mg Tablet.dr, 81 MG PO DAILY Carvedilol (Carvedilol) 12.5 Mg Tab, 12.5 MG PO BID, (Reported) Prednisone (Prednisone) 5 Mg Tablet, 5 MG PO DAILY, (Reported) Simvastatin (Simvastatin) 20 Mg Tablet, 20 MG PO QHS, (Reported) Umeclidinium [place] (Incruse Ellipta) 62.5 Mcg Blst.w.dev, 1 PUFF INH DAILY, (Reported) Scheduled PRN Docusate Sodium (Colace) 100 Mg Cap, 100 MG PO DAILY PRN for CONSTIPATION, (Reported) Allergies Coded Allergies: No Known Drug Allergies (Verified Allergy, Unknown, 01/27/20) GME ATTESTATION GME ATTESTATION My faculty preceptor for this patient encounter was physically present during the encounter and was fully available. All aspects of the patient interview, examination, medical decision making process, and medical care plan development were reviewed and approved by the faculty preceptor. The faculty preceptor is aware and concurs with the plan as stated in the body of this note and will attest to such by his/her cosignature. ATTENDING NOTE Patient was seen and examined by me personally with the students and the residents. Agree with the above assessment and plan. EMILE VARGAS MD Jan 29, 2020 16:42 PEEWEE LEON MD Feb 01, 2020 11:33
--- NOTE | 2020-02-01 13:01 | ECHO ---
DATE OF PROCEDURE: 01/29/2020 Age: 79 Gender: Female Height: 165 cm Weight: 59 kg REFERRING PHYSICIAN: Dr. Dana Luo INDICATION: Acute stroke, unspecified. MEASUREMENTS: 2D Measurements: Intraventricular septum 0.89 cm Posterior wall 0.83 cm Left ventricle diastole 4.4 cm Aortic root 2.9 cm Left atrium 4.0 cm Left atrial volume index 33 cm Inferior vena cava 1.5 cm (more than 50% respiratory variation). Doppler Measurements: No aortic stenosis No aortic regurgitation Aortic valve velocity 97.6 cm/s LVOT velocity 73.8 cm/s Very mild mitral regurgitation Very mild tricuspid regurgitation Estimated right ventricle systolic pressure 26-31 mmHg Estimated right atrial pressure of 5-10 mmHg No pulmonic regurgitation Pulmonary artery acceleration time 129 msec No pulmonic regurgitation DESCRIPTION: Rhythm was underlying atrial fibrillation, ventricular paced rhythm at 70 BPM. Image quality was adequate. CONCLUSIONS: 1. Normal left ventricle internal dimensions and wall thickness. Normal regional left ventricular (LV) wall motion and wall thickening. Paradoxical septal motion was not apparent despite ventricular pacing. Unable to assess left ventricular (LV) diastolic function in the setting of atrial fibrillation. 2. Mild left atrial dilation by left atrial volume index. 3. Mild aortic valve sclerosis with a 3-cuspid aortic valve. No aortic regurgitation. 4. Mild mitral annular calcification. Very mild mitral regurgitation. 5. Small pericardial effusion measuring 0.7 cm over the posterior wall of the left ventricle. No diastolic chamber collapse. 6. Otherwise normal appearing echocardiogram Doppler findings. MTDD
== END 2020-01-29 11:33 | disposition home or self-care (01) | DRG 69 ==
LOC: M ED 08:22 → M ED INP 10:07 → ENRESERV 10:18 → M PCU 11:26
PROVIDERS: ADMIT Internal Medicine; ATTEND Internal Medicine
DX: G45.9 Transient cerebral ischemic attack, unspecified (principal); G81.91 Hemiplegia, unspecified affecting right dominant side; I16.0 Hypertensive urgency; J47.9 Bronchiectasis, uncomplicated; M54.12 Radiculopathy, cervical region; R53.83 Other fatigue; I48.91 Unspecified atrial fibrillation; Z95.0 Presence of cardiac pacemaker; Z79.899 Other long term (current) drug therapy; Z79.82 Long term (current) use of aspirin

== ENCOUNTER → 2020-05-19 | Outpatient (REF) | payer MEDICARE ==
[~2020-05-19] MED LIST changes: +ASPI-569 PO; +INCR1INH INH; +PRED5TA PO; +SIMV20TA22 PO
[2020-05-19 10:23] LABS: HEMATOCRIT 45.4 % (36.0-47.0); HEMOGLOBIN 14.1 g/dl (12.0-15.5); MEAN CORPUSCULAR HEMOGLOBIN 29.9 pg (27.0-33.0); MEAN CORPUSCULAR HGB CONC 31.1 g/dl (32.0-36.5); MEAN CORPUSCULAR VOLUME 96.4 fl (80.0-96.0); PLATELET COUNT, AUTOMATED 265 10^3/uL (150-450); RED BLOOD COUNT 4.71 10^6/uL (4.00-5.40); WHITE BLOOD COUNT 7.7 10^3/uL (4.0-10.0)
[2020-05-19 11:07] LABS: ALBUMIN 3.3 GM/DL (3.2-5.2); ALT/SGPT 17 U/L (12-78); BILIRUBIN,TOTAL 0.9 MG/DL (0.2-1.0); BLOOD UREA NITROGEN 21 MG/DL (7-18); CALCIUM LEVEL 9.3 MG/DL (8.8-10.2); CARBON DIOXIDE LEVEL 33 MEQ/L (21-32); CHLORIDE LEVEL 108 MEQ/L (98-107); CHOLESTEROL LEVEL 170 MG/DL (<200); CHOLESTEROL RISK RATIO 2.537 (<5); CREATININE FOR GFR 0.99 MG/DL (0.55-1.30); GLOMERULAR FILTRATION RATE 57.8 (>39); GLUCOSE, FASTING 81 MG/DL (70-100); HDL CHOLESTEROL 67 MG/DL (>40); LDL CHOLESTEROL 76 MG/DL (<100); NON-HDL-C 103 MG/DL; POTASSIUM SERUM 4.6 MEQ/L (3.5-5.1); SODIUM LEVEL 143 MEQ/L (136-145); TRIGLYCERIDES LEVEL 137 MG/DL (<150)
[2020-05-21 17:06] LABS: HEPATITIS C VIRUS ABY INDEX < 0.0 INDEX (<0.8)
== END ==
LOC: M PLALAB 08:03
PROVIDERS: ATTEND Internal Medicine
DX: J47.9 Bronchiectasis, uncomplicated (principal); E78.00 Pure hypercholesterolemia, unspecified; R94.6 Abnormal results of thyroid function studies

== ENCOUNTER → 2020-06-20 | Outpatient (CLI) | payer MEDICARE ==
--- NOTE | 2020-06-20 11:27 | DEXAMM ---
INDICATION: M83.0 AGE REL OSTEOPOROSIS. COMPARISON: Most recent comparison densitometry study is February 25, 2017. The most remote is from July 26, 2000.. TECHNIQUE: Bone density was measured using dual-energy x-ray absorptionmetry (DEXA). FINDINGS: AP SPINE L1-L4 BMD 1.175 g/cm2 Young Adult T-Score -0.2 Age Matched Z-Score 1.6. LT FEMUR, TOTAL BMD 0.876 g/cm2 Young Adult T-Score -1.0 Age Matched Z-Score 0.9. LT NECK BMD 0.897 g/cm2 Young Adult T-Score -1.0 Age Matched Z-Score 1.1. RT FEMUR, TOTAL BMD 0.789 g/cm2 Young Adult T-Score -1.7 Age Matched Z-Score 0.2. RT NECK BMD 0.799 g/cm2 Young Adult T-Score -1.7 Age Matched Z-Score 0.3. IMPRESSION: There is normal bone density of the spine. There is low bone density of the left hip. There is low bone density of the right hip. The density of the spine has decreased 5.8% since the initial exam on July 26, 2000. The density of the spine increase 0.2% since most recent exam on February 25, 2017. The density of the left hip has decreased 12.2% since initial exam on July 26, 2000. The density of the left hip has decreased 2.6% since most recent exam on February 25, 2017. The density of the right hip has decreased 17.9% since the initial exam on July 26, 2000. The density of the right hip has decreased 2.2% since the most recent exam on February 25, 2017. FOLLOW-UP: Recommendation for the next bone density exam: 2 years. <Electronically signed by Emre Bocanegra > 06/20/20 1123
--- NOTE | 2020-06-20 17:03 | REPMRS ---
Patient History The patient states she has not had a clinical breast exam in over a year. No known family history of cancer. No Hormone Replacement Therapy Digital Woman Screen Mammo: June 20, 2020 - Exam #: [id number] Bilateral CC and MLO view(s) were taken. Technologist: Renetta Cahmpion, Technologist Prior study comparison: March 08, 2018, bilateral digital woman screen mammo performed at [facility]. February 25, 2017, digital woman screen mammo performed at [facility]. October 15, 2015, digital woman screen mammo performed at [facility]. FINDINGS: There are scattered fibroglandular densities. The Volpara volumetric breast density category is:B. There is a pacemaker power plant projecting over the left axilla on the MLO view. There has been no change in the appearance of the mammogram from the prior studies. There is a mild amount of scattered fibroglandular density which is fairly symmetric. There is no interval development of dominant mass, architectural distortion, or grouped microcalcification suggestive of malignancy. 3-D tomosynthesis shows no additional findings. Assessment: BI-RADS/ACR category 2 mammogram. Benign Findings. Recommendation Routine screening mammogram of both breasts in 1 year (for women over age 40). This patient's [facility] Lifetime Breast Cancer Risk is estimated at 2.2 %. This mammogram was interpreted with the aid of an FDA-approved computer-aided dectection system. Electronically Signed By: Emre Bocanegra MD 06/20/20 2921
== END ==
LOC: M WHC 09:19
PROVIDERS: ATTEND Internal Medicine
DX: Z12.31 Encounter for screening mammogram for malignant neoplasm of breast (principal); M81.0 Age-related osteoporosis without current pathological fracture; M85.851 Other specified disorders of bone density and structure, right thigh; M85.852 Other specified disorders of bone density and structure, left thigh; Z95.0 Presence of cardiac pacemaker

== ENCOUNTER → 2020-09-18 | Outpatient (CLI) | payer MEDICARE ==
--- NOTE | 2020-09-18 16:47 | REP ---
INDICATION: SWELLING MASS LUMP LT ARM. The patient reports an egg size lump 3 weeks ago discovered in the arm which has apparently been abating. It was initially painful and is no longer painful. Patient relates there was no known injury. COMPARISON: None. TECHNIQUE: Targeted soft tissue ultrasound is performed in the area of interest in the left arm where the patient feels a tender area of lump. Contralateral right-sided soft tissue sonography imaging is acquired for comparison purposes. FINDINGS: Soft tissue sonography demonstrates a very subtle hypoechoic area in what is believed to be the biceps muscle belly in the area of the palpable abnormality. There is no fluid collection or obvious mass. In comparison with the other right-sided biceps, this area is only slightly hypoechoic. The brachial artery is just anterior to this area on both sides. No evidence of vascular pathology. IMPRESSION: No mass or abnormal fluid collection is seen. A subtly hypoechoic areas in what is believed to be the biceps muscle is seen in the effected area of the left arm. Question contusion or partial muscle tear. Clinical follow-up is advised. If symptoms progress or recur. Additional cross-sectional imaging may be helpful. <Electronically signed by Emre Bocanegra > 09/18/20 0428
== END ==
LOC: M RAD 16:00
PROVIDERS: ATTEND Nurse Practitioner Family
DX: R22.32 Localized swelling, mass and lump, left upper limb (principal)

== ENCOUNTER → 2020-10-01 | Outpatient (CLI) | payer MEDICARE ==
[2020-10-01 12:05] LABS: HEMATOCRIT 45.2 % (36.0-47.0); MEAN CORPUSCULAR HEMOGLOBIN 29.2 pg (27.0-33.0); MEAN CORPUSCULAR VOLUME 94.2 fl (80.0-96.0); PLATELET COUNT, AUTOMATED 266 10^3/uL (150-450); WHITE BLOOD COUNT 10.4 10^3/uL (4.0-10.0)
[2020-10-01 12:28] LABS: BLOOD UREA NITROGEN 10 MG/DL (7-18); CALCIUM LEVEL 9.9 MG/DL (8.8-10.2); CARBON DIOXIDE LEVEL 32 MEQ/L (21-32); CHLORIDE LEVEL 110 MEQ/L (98-107); CREATININE FOR GFR 0.83 MG/DL (0.55-1.30); GLOMERULAR FILTRATION RATE > 60.0 (>39); GLUCOSE, FASTING 94 MG/DL (70-100); POTASSIUM SERUM 4.7 MEQ/L (3.5-5.1); SODIUM LEVEL 144 MEQ/L (136-145)
== END ==
LOC: M LAB 11:17
PROVIDERS: ATTEND Physician Assistant
DX: I44.2 Atrioventricular block, complete (principal)

== ENCOUNTER → 2020-10-11 | Outpatient (CLI) | payer MEDICARE | LOC: M LABSMTC 09:05 | PROVIDERS: ATTEND Anesthesiology | DX: Z20.828 Contact with and (suspected) exposure to other viral communicable diseases (principal); Z11.59 Encounter for screening for other viral diseases ==

== ENCOUNTER 2020-10-16 14:21 | Day surgery (SDC) | payer MEDICARE ==
[~2020-10-16] VITALS: Ht 165.1 cm; Wt 54.3 kg
[~2020-10-16 14:21] MED LIST changes: +LIDOCAINE 2% 100MG/5ML SDV (FOR ANES.) As Ordered ONE; +LR 1,000 ML IV ONE; +MIDAZOLAM INJ 2MG/2ML VIAL (J2250 PER 1MG) As Ordered ONE; +fentaNYL 100 MCG/2 ML INJECTION (J3010) As Ordered ONE; +propofoL 200 MG/20 ML VIAL As Ordered ONE
[2020-10-16] MEDS ORDERED: LIDOCAINE 1% SDV 30ML VIAL As Ordered ONE (14:43)
[2020-10-16] MEDS ORDERED: ISOVUE-300 61% 50ML VIAL As Ordered ONE (14:43)
[2020-10-16] MEDS ORDERED: ceFAZolin 1GM VIAL (J0690 PER 500MG) As Ordered ONE ×2 (14:44→15:22)
[2020-10-16] MEDS ORDERED: AMIODARONE HCL 150 MG/100 ML PREMIXED BAG (NEXTERONE) (J0282 PER 30MG) As Ordered ONE (14:44)
[2020-10-16] MEDS ORDERED: ACETAMINOPHEN 1000MG 100ML IV BTL (OFIRMEV) (J0131 PER 10MG) As Ordered ONE (15:53)
[2020-10-16 16:40] VITALS: BP 156/71
--- NOTE | 2020-10-16 18:22 | RO ---
OPERATIVE NOTE DATE OF OPERATION: 10/16/2020 PREOPERATIVE DIAGNOSIS: 1. Pacemaker battery depletion. 2. Complete heart block. 3. Chronic atrial fibrillation/flutter. POSTOPERATIVE DIAGNOSIS: 1. Pacemaker battery depletion. 2. Complete heart block. 3. Chronic atrial fibrillation/flutter. PROCEDURE: 1. Explantation of depleted dual-chamber pulse generator. 2. Capping off old atrial pacing lead. 3. Testing old ventricular pacing lead. 4. Implantation of single chamber pulse generator. IMPLANTING ORGAN PIPE VOICER: Devan Nick M.D. ANESTHESIOLOGIST: Dr. Shook ANESTHESIA: Monitored local anesthesia. 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 She has been followed on a regular basis and recently her pacemaker was found to be at the elective replacement indicator. At her last visit October 01, 2020, she claimed to feel some shortness of breath with activities but this has been stable, denied any chest pain, palpitations, dizziness, embolic phenomenon or claudication. 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 Pharmaceutical stress heart scan, September, showed no inducible chest pain or EKG change, normal left ventricular size and wall motion, LVEF of 65% with diaphragmatic attenuation artifact but no reversible perfusion defect. Echocardiogram, January 29, 2020 showed normal left ventricular size and wall thickness with paradoxical septal wall motion due to right ventricular pacing but preserved global resting systolic function, a prominently dilated left atrium with normal estimated mean left atrial pressure. Normal right heart chamber sizes and motion with borderline pulmonary hypertension, mildly dilated right atrium with normal IVC size and collapse against an elevated central venous pressure. 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 Very small posterior pericardial effusion. On examination, she is a pleasant, elderly lady of medium body build, petite, no pallor or cyanosis. Heart rate is 70 BPM and regular, blood pressure 128/68 sitting. Respiratory rate 16, BMI 20. Trachea midline. Thyroid not enlarged. Jugular veins were at the level of the sternal angle. Normal appearing chest configuration and expansion with a pacemaker incision, left subclavian region. A few bibasilar inspiratory rales but no expiratory wheezes. Apical impulse at the midclavicular line, fifth intercostal space. Caroline S1 with persistently split S2, no audible gallop or murmur. Pedal pulses were symmetrically normal. No pedal edema. Soft abdomen. Blood work showed hemoglobin of 12.8, normal white blood cell count and platelet count. Chemistry confirmed electrolyte balance with potassium 3.8, BUN 12, creatinine 0.8, random glucose 84. Albumin 2.7. EKG showed underlying atrial fibrillation/flutter with consistent ventricular paced rhythm at 70 BPM. Paced QRS complexes with left axis and left bundle branch block configuration in keeping in RV apical stimulation. No change from September of 2019. DESCRIPTION OF PROCEDURE: With the patient in the fasting state, having signed informed consent and having received Ancef 1 gm IV premedication, the patient was taken to the operating theater. Numerous skin electrodes were applied to facilitate continuous electrocardiographic monitoring. The left subclavian region at the site of her old pacer site pacemaker implant was prepped and draped in the usual fashion. The skin over her old incision was infiltrated with 1% Xylocaine and a 5 cm linear incision was then made over the same site. Careful dissection was then performed down to the depleted pacemaker ([employer], model #[id number], serial #[id number] originally implanted June 24, 2009) and the old pacing leads were then disconnected. The old atrial pacing lead was kept off in light of her prominently dilated left atrium and persistent atrial fibrillation/flutter for some time. Her ventricular lead ([employer], model #2088TC/52, serial #[id number] implanted July 04, 2009) was then tested measurements were: stimulation threshold 0.75 V/pulse width 0.4 ms/lead impedance 550 ohms. There was no recordable spontaneous R wave. This old ventricular lead was then connected to a new single chamber pulse generator ([employer], model #CZ8943, serial #[id number]) and appropriate VVI pacing was documented. Her old pacer pocket was thoroughly irrigated with Ancef solution. The new pulse generator was placed in the pocket, secured in position with a suture through the upper right hand corner of the epoxy header. The subcutaneous tissues were approximated using a running Chromic suture. The skin was closed using julienne. Dry dressing was applied and the patient was returned to the recovery room in good condition. No apparent complications. Estimated blood loss: 5 ml. Her IV will be disconnected once she is able to tolerate p.o. and she will be able to go home when she is alert and ambulatory. She will be given an appointment for wound check and staple removal October 23, 2020 at 9:15 a.m. She was to resume her modest salt intake restriction and medications including carvedilol 12.5 mg b.i.d., Eliquis 5 mg b.i.d. (will be resumed October 18, 2020), aspirin 81 mg daily, simvastatin 20 mg daily, Incruse Ellipta 62.5 mcg per inhalation, one inhalation daily, prednisone 5 mg daily, omeprazole 20 mg p.r.n., multivitamin one daily, vitamin D 1000 units p.o. daily, calcium with D one tablet daily, Coenzyme 10 100 mg daily and simvastatin 20 mg daily. She is encouraged to perform light activities with her left arm temporarily and avoid getting her incision wet until her julienne area removed in our office. Encouraged to contact us promptly for any abnormal erythema, swelling or discharge. GILBERTO
== END 2020-10-16 16:49 | disposition home or self-care (01) ==
LOC: M SDC 14:21
PROVIDERS: ATTEND Internal Medicine Cardiovascular Disease
DX: Z45.010 Encounter for checking and testing of cardiac pacemaker pulse generator [battery] (principal); I44.2 Atrioventricular block, complete; I48.20 Chronic atrial fibrillation, unspecified; I11.9 Hypertensive heart disease without heart failure; E78.00 Pure hypercholesterolemia, unspecified; Z79.82 Long term (current) use of aspirin; Z79.02 Long term (current) use of antithrombotics/antiplatelets; Z79.52 Long term (current) use of systemic steroids; Z79.899 Other long term (current) drug therapy
CPT/HCPCS: 33227; C1786; J0131; J0690; J2250; J3010

== ENCOUNTER → 2020-11-13 | Outpatient (CLI) | payer MEDICARE ==
[~2020-11-13] MED LIST changes: -LIDOCAINE 2% 100MG/5ML SDV (FOR ANES.) As Ordered ONE; -LR 1,000 ML IV ONE; -MIDAZOLAM INJ 2MG/2ML VIAL (J2250 PER 1MG) As Ordered ONE; -fentaNYL 100 MCG/2 ML INJECTION (J3010) As Ordered ONE; -propofoL 200 MG/20 ML VIAL As Ordered ONE
== END ==
LOC: M LABSMTC 09:36
PROVIDERS: ATTEND Pediatrics
DX: Z20.822 Contact with and (suspected) exposure to COVID-19 (principal)
CPT/HCPCS: C9803; U0003

== ENCOUNTER → 2020-11-18 | Outpatient (CLI) | payer MEDICARE ==
[2020-11-18 13:10] LABS: HEMATOCRIT 43.4 % (36.0-47.0); HEMOGLOBIN 13.4 g/dl (12.0-15.5); MEAN CORPUSCULAR HEMOGLOBIN 28.8 pg (27.0-33.0); MEAN CORPUSCULAR HGB CONC 30.9 g/dl (32.0-36.5); MEAN CORPUSCULAR VOLUME 93.1 fl (80.0-96.0); PLATELET COUNT, AUTOMATED 342 10^3/uL (150-450); RED BLOOD COUNT 4.66 10^6/uL (4.00-5.40); WHITE BLOOD COUNT 8.6 10^3/uL (4.0-10.0)
[2020-11-18 15:16] LABS: FREE T4 1.33 NG/DL (0.76-1.46); THYROID STIMULATING HORMONE 1.8 uIU/ML (0.358-3.740)
[2020-11-18 15:17] LABS: FOLATE 17.5 NG/ML
== END ==
LOC: M PLALAB 11:05
PROVIDERS: ATTEND Physician Assistant
DX: R63.4 Abnormal weight loss (principal)

== ENCOUNTER → 2020-11-28 | Outpatient (CLI) | payer MEDICARE ==
--- NOTE | 2020-11-28 09:07 | REP ---
INDICATION: R63.4 WEIGHT LOSS. COMPARISON: Right upper quadrant ultrasound 04/08/2009. TECHNIQUE: Real-time sonographic evaluation of ABDOMEN performed. FINDINGS: The gallbladder demonstrates no evidence of intraluminal sludge or calculi, wall thickening or pericholecystic fluid. There is no intrahepatic or extrahepatic biliary dilatation, common bile duct measures 2 mm in maximum diameter. The liver demonstrates homogeneous echotexture with no gross mass. The pancreas demonstrates homogeneous echotexture with no gross mass. Spleen is normal in size with no intrinsic abnormality, measuring 10.0 cm in length. There is no hydronephrosis bilaterally. There is a simple benign cyst in the mid right kidney 1.4 x 1.2 x 1.1 cm. A right lower pole nephrolith is suspected superiorly 11 mm in maximum diameter and another inferiorly 5 mm in diameter. The right kidney measures 10.4 x 4.3 x 4.0 cm. Left renal dimensions are 10.9 x 5.0 x 4 cm. The abdominal aorta is normal in caliber with no aneurysm. Maximum diameter is 1.5 cm. No free fluid is seen. IMPRESSION: Right renal cyst. There are 2 suspected right nephroliths. Otherwise, negative abdominal ultrasound. <Electronically signed by Amaury Bustos > 11/28/20 0999
== END ==
LOC: M WHC 07:54
PROVIDERS: ATTEND Physician Assistant
DX: R63.4 Abnormal weight loss (principal)

== ENCOUNTER → 2021-02-17 | Outpatient (REF) | payer MEDICARE | LOC: M LAB REF 17:54 | PROVIDERS: ATTEND Internal Medicine Pulmonary Disease | DX: J47.9 Bronchiectasis, uncomplicated (principal) ==

== ENCOUNTER → 2021-03-30 | Outpatient (CLI) | payer MEDICARE | LOC: M PLAIMG 09:39 | PROVIDERS: ATTEND Internal Medicine Pulmonary Disease | DX: R91.8 Other nonspecific abnormal finding of lung field (principal) ==

== ENCOUNTER → 2021-05-21 | Outpatient (CLI) | payer MEDICARE ==
[2021-05-21 11:23] LABS: BASO % 0.3 % (0.0-1.0); EOS # 0.3 10^3/uL (0.0-0.5); EOS % 2.7 % (0.0-3.0); HEMATOCRIT 44.2 % (36.0-47.0); HEMOGLOBIN 13.5 g/dl (12.0-15.5); LYMPH # 1.8 10^3/uL (1.5-5.0); LYMPH % 19.3 % (24.0-44.0); MEAN CORPUSCULAR HEMOGLOBIN 28.4 pg (27.0-33.0); MEAN CORPUSCULAR HGB CONC 30.5 g/dl (32.0-36.5); MEAN CORPUSCULAR VOLUME 92.9 fl (80.0-96.0); MONO # 0.9 10^3/uL (0.0-0.8); MONO % 10.1 % (2.0-8.0); NEUTROPHILS # 6.2 10^3/uL (1.5-8.5); NEUTROPHILS % 66.5 % (36.0-66.0); PLATELET COUNT, AUTOMATED 359 10^3/uL (150-450); RED BLOOD COUNT 4.76 10^6/uL (4.00-5.40); WHITE BLOOD COUNT 9.3 10^3/uL (4.0-10.0)
[2021-05-21 14:09] LABS: ALBUMIN 2.9 GM/DL (3.2-5.2); ALT/SGPT 31 U/L (12-78); BILIRUBIN,TOTAL 0.7 MG/DL (0.2-1.0); BLOOD UREA NITROGEN 19 MG/DL (7-18); CARBON DIOXIDE LEVEL 35 MEQ/L (21-32); CHLORIDE LEVEL 106 MEQ/L (98-107); CHOLESTEROL LEVEL 158 MG/DL (<200); CHOLESTEROL RISK RATIO 2.358 (<5); CREATININE FOR GFR 0.85 MG/DL (0.55-1.30); GLOMERULAR FILTRATION RATE > 60.0 (>39); GLUCOSE, FASTING 82 MG/DL (70-100); HDL CHOLESTEROL 67 MG/DL (>40); LDL CHOLESTEROL 60 MG/DL (<100); NON-HDL-C 91 MG/DL; POTASSIUM SERUM 4.4 MEQ/L (3.5-5.1); SODIUM LEVEL 145 MEQ/L (136-145); TOTAL 25(OH) VITAMIN D 28.1 NG/ML (30.0-100.0); TOTAL PROTEIN 6.4 GM/DL (6.4-8.2); TRIGLYCERIDES LEVEL 153 MG/DL (<150)
== END ==
LOC: M PLALAB 08:53
PROVIDERS: ATTEND Internal Medicine
DX: E78.00 Pure hypercholesterolemia, unspecified (principal)

== ENCOUNTER → 2021-06-04 | Outpatient (CLI) | payer MEDICARE ==
[~2021-06-04] MED LIST changes: +ALBU83IN INH; +COQ1200C3 PO; +HOME MED LIST COMPLETE! XX SCH; +HYDR5LIQ2 PO; +LIDOCAINE 1% MDV 20ML VIAL As Ordered ONE; +MEGE40SU5 PO; +VITA30004 PO; +VITMTA PO
[2021-06-04 08:15] VITALS: BP 147/70
[2021-06-04 08:53] LABS: PLATELET COUNT, AUTOMATED 255 10^3/uL (150-450)
[2021-06-04 09:17] LABS: INR 1.09; PROTHROMBIN TIME 14.6 SECONDS (12.7-14.5)
[2021-06-04 09:18] LABS: PARTIAL THROMBOPLASTIN TIME 27.6 SECONDS (25.9-37.0)
== END ==
LOC: M IRPRO 07:59
PROVIDERS: ATTEND Internal Medicine Pulmonary Disease
DX: R91.8 Other nonspecific abnormal finding of lung field (principal); Z53.8 Procedure and treatment not carried out for other reasons; Z79.01 Long term (current) use of anticoagulants

== ENCOUNTER → 2021-08-28 | Outpatient (CLI) | payer MEDICARE ==
[~2021-08-28] MED LIST changes: +ALBU2.5V10 INH; -ALBU83IN INH; -HOME MED LIST COMPLETE! XX SCH; -LIDOCAINE 1% MDV 20ML VIAL As Ordered ONE
== END ==
LOC: M WHC 12:57
PROVIDERS: ATTEND Internal Medicine
DX: Z12.31 Encounter for screening mammogram for malignant neoplasm of breast (principal)

== ENCOUNTER → 2021-10-21 | Outpatient (CLI) | payer MEDICARE ==
[~2021-10-21] MED LIST changes: +LEVO1TAB40 PO; -LEVO750T13 PO; +PRESCAP PO; +[UNRECOGNIZED DRUG - OTHER] PO
== END ==
LOC: M LABSMTC 09:21
PROVIDERS: ATTEND Anesthesiology
DX: Z01.812 Encounter for preprocedural laboratory examination (principal); Z20.822 Contact with and (suspected) exposure to COVID-19

== ENCOUNTER 2021-10-26 12:47 | Day surgery (SDC) | payer MEDICARE ==
[~2021-10-26] VITALS: Ht 165.1 cm; Wt 49.0 kg
[~2021-10-26 12:47] MED LIST changes: +ACETYLCHOLINE OPHTH SOLN 1% 2ML (MIOCHOL-E) As Ordered ONE; +LIDOCAINE 1% SDV 5ML VIAL As Ordered ONE; +LR 1,000 ML IV SCH; +MIDAZOLAM INJ 2MG/2ML VIAL (J2250 PER 1MG) As Ordered ONE
[2021-10-26] MEDS: PHENYLEPHRINE 2.5% OPHTH SOL 2ML OD SCH ×3 (13:31→13:56)
[2021-10-26] MEDS: FLURBIPROFEN 0.03% OPHTH SOLN 2.5 ML OD SCH ×3 (13:31→13:56)
[2021-10-26] MEDS: CYCLOPENTOLATE 1% OPHTH SOLN 2 ML BTL OD SCH ×3 (13:32→13:56)
[2021-10-26] MEDS: TETRACAINE 0.5% OPHTH SOLN 4ML OD SCH ×3 (13:32→14:42)
[2021-10-26 15:08] VITALS: BP 157/81
== END 2021-10-26 15:29 | disposition home or self-care (01) ==
LOC: M SDC 12:47
PROVIDERS: ATTEND Ophthalmology
DX: H25.11 Age-related nuclear cataract, right eye (principal); I48.91 Unspecified atrial fibrillation; K21.9 Gastro-esophageal reflux disease without esophagitis; K57.92 Diverticulitis of intestine, part unspecified, without perforation or abscess without bleeding; Z95.0 Presence of cardiac pacemaker; Z79.01 Long term (current) use of anticoagulants; Z79.82 Long term (current) use of aspirin; Z79.51 Long term (current) use of inhaled steroids; Z79.52 Long term (current) use of systemic steroids; J44.9 Chronic obstructive pulmonary disease, unspecified; Z86.73 Personal history of transient ischemic attack (TIA), and cerebral infarction without residual deficits
CPT/HCPCS: 66984; J2250; V2787

== ENCOUNTER → 2021-11-25 | Outpatient (CLI) | payer MEDICARE ==
[~2021-11-25] MED LIST changes: -ACETYLCHOLINE OPHTH SOLN 1% 2ML (MIOCHOL-E) As Ordered ONE; -LIDOCAINE 1% SDV 5ML VIAL As Ordered ONE; -LR 1,000 ML IV SCH; -MIDAZOLAM INJ 2MG/2ML VIAL (J2250 PER 1MG) As Ordered ONE
== END ==
LOC: M LABSMTC 10:07
PROVIDERS: ATTEND Anesthesiology
DX: Z01.812 Encounter for preprocedural laboratory examination (principal); Z11.52 Encounter for screening for COVID-19

== ENCOUNTER 2021-11-30 10:22 | Day surgery (SDC) | payer MEDICARE ==
[~2021-11-30] VITALS: Ht 165.1 cm; Wt 49.9 kg
[~2021-11-30 10:22] MED LIST changes: +CYCLOPENTOLATE 1% OPHTH SOLN 2 ML BTL OS SCH; +FLURBIPROFEN 0.03% OPHTH SOLN 2.5 ML OS SCH; +LIDOCAINE 1% SDV 5ML VIAL As Ordered ONE; +LR 1,000 ML IV SCH; +PHENYLEPHRINE 2.5% OPHTH SOL 2ML OS SCH; +TETRACAINE 0.5% OPHTH SOLN 4ML OS SCH
[2021-11-30] MEDS ORDERED: MIDAZOLAM INJ 2MG/2ML VIAL (J2250 PER 1MG) As Ordered ONE (14:06)
[2021-11-30] MEDS ORDERED: fentaNYL 100 MCG/2 ML INJECTION As Ordered ONE (14:07)
[2021-11-30 15:25] VITALS: BP 171/91
== END 2021-11-30 15:35 | disposition home or self-care (01) ==
LOC: M SDC 10:22
PROVIDERS: ATTEND Ophthalmology
DX: H25.12 Age-related nuclear cataract, left eye (principal); I48.91 Unspecified atrial fibrillation; E78.5 Hyperlipidemia, unspecified; R94.31 Abnormal electrocardiogram [ECG] [EKG]; Z95.0 Presence of cardiac pacemaker; J44.9 Chronic obstructive pulmonary disease, unspecified; G43.909 Migraine, unspecified, not intractable, without status migrainosus; Z79.01 Long term (current) use of anticoagulants; Z79.52 Long term (current) use of systemic steroids; Z79.82 Long term (current) use of aspirin; Z79.899 Other long term (current) drug therapy; K57.92 Diverticulitis of intestine, part unspecified, without perforation or abscess without bleeding; K21.9 Gastro-esophageal reflux disease without esophagitis
CPT/HCPCS: 66984; J2250; J3010; V2787

== ENCOUNTER → 2022-01-12 | Outpatient (CLI) | payer MEDICARE ==
[~2022-01-12] MED LIST changes: -CYCLOPENTOLATE 1% OPHTH SOLN 2 ML BTL OS SCH; -FLURBIPROFEN 0.03% OPHTH SOLN 2.5 ML OS SCH; -LIDOCAINE 1% SDV 5ML VIAL As Ordered ONE; -LR 1,000 ML IV SCH; -PHENYLEPHRINE 2.5% OPHTH SOL 2ML OS SCH; -TETRACAINE 0.5% OPHTH SOLN 4ML OS SCH
[2022-01-12 16:10] LABS: HEMATOCRIT 44.3 % (36.0-47.0); HEMOGLOBIN 13.6 g/dl (12.0-15.5); MEAN CORPUSCULAR HEMOGLOBIN 29.8 pg (27.0-33.0); MEAN CORPUSCULAR HGB CONC 30.7 g/dl (32.0-36.5); MEAN CORPUSCULAR VOLUME 97.1 fl (80.0-96.0); PLATELET COUNT, AUTOMATED 262 10^3/uL (150-450); RED BLOOD COUNT 4.56 10^6/uL (4.00-5.40); WHITE BLOOD COUNT 8.8 10^3/uL (4.0-10.0)
[2022-01-12 16:26] LABS: BILIRUBIN,TOTAL 0.7 MG/DL (0.2-1.0); C REACTIVE PROTEIN QUANTITATIV 1.16 MG/DL (0.00-0.30); CALCIUM LEVEL 9.6 MG/DL (8.8-10.2); CHOLESTEROL RISK RATIO 4.216 (<5); FREE T4 1.08 NG/DL (0.76-1.46); GLOMERULAR FILTRATION RATE 56.9 (>39); POTASSIUM SERUM 3.8 MEQ/L (3.5-5.1); THYROID STIMULATING HORMONE 2.09 uIU/ML (0.358-3.740); TOTAL PROTEIN 6.7 GM/DL (6.4-8.2)
[2022-01-12 17:10] LABS: MALB URINE SIEMENS 39.3 MG/L; MAU/CREAT RATIO 21.8 MCG/MG (0.0-30.0)
[2022-01-12 17:20] LABS: TOTAL 25(OH) VITAMIN D 29.3 NG/ML (30.0-100.0)
[2022-01-12 21:23] LABS: HEMOGLOBIN A1c 5.8 %
== END ==
LOC: M PLALAB 11:22
PROVIDERS: ATTEND Internal Medicine Hematology
DX: E78.00 Pure hypercholesterolemia, unspecified (principal)

== ENCOUNTER → 2022-02-15 | Outpatient (CLI) | payer MEDICARE | LOC: M LABSMTC 09:51 | PROVIDERS: ATTEND Anesthesiology | DX: Z01.812 Encounter for preprocedural laboratory examination (principal); Z11.52 Encounter for screening for COVID-19 ==

== ENCOUNTER 2022-02-18 12:32 | Day surgery (SDC) | payer MEDICARE ==
[~2022-02-18] VITALS: Ht 162.6 cm; Wt 49.0 kg
[~2022-02-18 12:32] MED LIST changes: +NS 1,000 ML IV ONE
[2022-02-18 15:31] VITALS: BP 169/77
== END 2022-02-18 15:40 | disposition home or self-care (01) ==
LOC: M OPP 12:32
PROVIDERS: ATTEND Surgery
DX: D12.6 Benign neoplasm of colon, unspecified (principal); K64.3 Fourth degree hemorrhoids; K57.30 Diverticulosis of large intestine without perforation or abscess without bleeding; Z79.01 Long term (current) use of anticoagulants; Z79.02 Long term (current) use of antithrombotics/antiplatelets; Z79.51 Long term (current) use of inhaled steroids; Z88.8 Allergy status to other drugs, medicaments and biological substances; I48.91 Unspecified atrial fibrillation; E78.00 Pure hypercholesterolemia, unspecified; J44.9 Chronic obstructive pulmonary disease, unspecified; Z95.0 Presence of cardiac pacemaker

== ENCOUNTER → 2022-06-04 | Outpatient (CLI) | payer MEDICARE ==
[~2022-06-04] MED LIST changes: -NS 1,000 ML IV ONE
[2022-06-04 15:13] LABS: HEMOGLOBIN 13.4 g/dl (12.0-15.5); MEAN CORPUSCULAR HEMOGLOBIN 28.6 pg (27.0-33.0); MEAN CORPUSCULAR HGB CONC 29.8 g/dl (32.0-36.5); MEAN CORPUSCULAR VOLUME 96.2 fl (80.0-96.0); PLATELET COUNT, AUTOMATED 299 10^3/uL (150-450); RED BLOOD COUNT 4.68 10^6/uL (4.00-5.40); WHITE BLOOD COUNT 7.8 10^3/uL (4.0-10.0)
[2022-06-04 15:32] LABS: HEMOGLOBIN A1c 5.7 % (4.0-6.0)
[2022-06-04 15:42] LABS: CREATININE, URINE 91.7 MG/DL; MAU/CREAT RATIO 9.8 MCG/MG (0.0-30.0)
[2022-06-04 15:49] LABS: IRON (FE) 69 UG/DL (50-170); PERCENT SATURATION 23.5 % (13.2-45.0); TOTAL IRON BINDING CAPACITY 294 UG/DL (250-425)
[2022-06-04 15:56] LABS: ALKALINE PHOSPHATASE 99 U/L (46-116); ALT/SGPT 10 U/L (7.0-40); AST/SGOT 16 U/L (<34); BILIRUBIN,TOTAL 0.8 MG/DL (0.3-1.2); BLOOD UREA NITROGEN 18 MG/DL (9-23); CALCIUM LEVEL 9.6 MG/DL (8.3-10.6); CARBON DIOXIDE LEVEL 34 MMOL/L (20-31); CHLORIDE LEVEL 107 MMOL/L (98-107); CHOLESTEROL LEVEL 164 MG/DL (<200); CHOLESTEROL RISK RATIO 3.16 (<5); CREATININE FOR GFR 0.75 MG/DL (0.55-1.30); FERRITIN 47.4 NG/ML (7.3-270.7); GLOMERULAR FILTRATION RATE > 60.0 (>32); GLUCOSE, FASTING 85 MG/DL (74-106); HDL CHOLESTEROL 51.8 MG/DL (>40); LDL CHOLESTEROL 85.8 MG/DL (<100); NON-HDL-C 112.2 MG/DL; POTASSIUM SERUM 4.2 MMOL/L (3.5-5.1); SODIUM LEVEL 141 MMOL/L (136-145); TOTAL 25(OH) VITAMIN D 34.2 NG/ML (20.0-100.0); TOTAL PROTEIN 6.4 G/DL (5.7-8.2); TRIGLYCERIDES LEVEL 132 MG/DL (<150)
== END ==
LOC: M PLALAB 10:10
PROVIDERS: ATTEND Internal Medicine Hematology
DX: E78.00 Pure hypercholesterolemia, unspecified (principal)

== ENCOUNTER → 2022-06-15 | Outpatient (CLI) | payer MEDICARE | LOC: M PLAIMG 11:15 | PROVIDERS: ATTEND Internal Medicine Pulmonary Disease | DX: J47.9 Bronchiectasis, uncomplicated (principal); Z79.52 Long term (current) use of systemic steroids; Z95.0 Presence of cardiac pacemaker ==

== ENCOUNTER → 2022-11-24 | Outpatient (CLI) | payer MEDICARE | LOC: M RAD 14:48 | PROVIDERS: ATTEND Internal Medicine Pulmonary Disease | DX: R91.8 Other nonspecific abnormal finding of lung field (principal); J47.9 Bronchiectasis, uncomplicated ==

== ENCOUNTER → 2022-12-27 | Outpatient (CLI) | payer MEDICARE ==
[2022-12-27 16:13] LABS: BASO % 0.2 % (0.0-1.0); EOS % 0.4 % (0.0-3.0); HEMATOCRIT 44.4 % (36.0-47.0); HEMOGLOBIN 13.7 g/dl (12.0-15.5); LYMPH # 1.4 10^3/uL (1.5-5.0); LYMPH % 17.1 % (24.0-44.0); MEAN CORPUSCULAR HEMOGLOBIN 28.8 pg (27.0-33.0); MEAN CORPUSCULAR HGB CONC 30.9 g/dl (32.0-36.5); MEAN CORPUSCULAR VOLUME 93.5 fl (80.0-96.0); MONO # 0.4 10^3/uL (0.0-0.8); MONO % 5.3 % (2.0-8.0); NEUTROPHILS # 6.2 10^3/uL (1.5-8.5); NEUTROPHILS % 76.4 % (36.0-66.0); PLATELET COUNT, AUTOMATED 282 10^3/uL (150-450); RED BLOOD COUNT 4.75 10^6/uL (4.00-5.40); WHITE BLOOD COUNT 8.1 10^3/uL (4.0-10.0)
[2022-12-27 22:48] LABS: ALBUMIN 3.2 G/DL (3.2-5.2); ALKALINE PHOSPHATASE 96 U/L (46-116); ALT/SGPT 13 U/L (7.0-40); AST/SGOT 18 U/L (<34); BILIRUBIN,TOTAL 0.7 MG/DL (0.3-1.2); BLOOD UREA NITROGEN 21 MG/DL (9-23); CALCIUM LEVEL 9.6 MG/DL (8.3-10.6); CARBON DIOXIDE LEVEL 34 MMOL/L (20-31); CHLORIDE LEVEL 105 MMOL/L (98-107); CREATININE FOR GFR 0.74 MG/DL (0.55-1.30); GLOMERULAR FILTRATION RATE > 60.0 (>32); GLUCOSE, FASTING 109 MG/DL (74-106); IMMUNOGLOBULIN A 230.7 MG/DL (40-350); POTASSIUM SERUM 5.1 MMOL/L (3.5-5.1); SODIUM LEVEL 145 MMOL/L (136-145); TOTAL PROTEIN 6.9 G/DL (5.7-8.2)
[2022-12-27 22:49] LABS: IMMUNOGLOBULIN G 1373 MG/DL (650-1600); IMMUNOGLOBULIN M 156.4 MG/DL (50-300)
[2022-12-27 23:18] LABS: IMMUNOGLOBULIN E 8.5 IU/ML (0-378)
[2023-01-04 13:07] LABS: ASPERGILLUS FLAVUS ABY Negative (Neg:<1:1); ASPERGILLUS FUMIGATUS ABY Negative (Neg:<1:1); ASPERGILLUS GALACTOMANNAN AG 0.12 Index (0.00-0.49); ASPERGILLUS NIGER ABY Negative (Neg:<1:1); IgG SERUM (part of Subclasses) 1330 mg/dL (586-1602); IgG Subclass 1 637 mg/dL (248-810); IgG Subclass 2 490 mg/dL (130-555); IgG Subclass 3 172 mg/dL (15-102); IgG Subclass 4 31 mg/dL (2-96); M003-IGE ASPERGILLUS fumigatus <0.10 kU/L (Class 0)
== END ==
LOC: M PLALAB 14:41
PROVIDERS: ATTEND Internal Medicine Infectious Disease
DX: B44.89 Other forms of aspergillosis (principal); J47.9 Bronchiectasis, uncomplicated

== ENCOUNTER → 2023-02-03 | Outpatient (REF) | payer MEDICARE | LOC: M SFHCPLAZ 13:15 | PROVIDERS: ATTEND Internal Medicine Infectious Disease | DX: A31.0 Pulmonary mycobacterial infection (principal) ==

== ENCOUNTER → 2023-06-14 | Outpatient (CLI) | payer MEDICARE ==
[~2023-06-14] MED LIST changes: -MEGE40SU5 PO; +MEGE40SU6 PO
[2023-06-14 13:07] LABS: BASO % 0.4 % (0.0-1.0); EOS # 0.2 10^3/uL (0.0-0.5); EOS % 2.3 % (0.0-3.0); HEMATOCRIT 44.7 % (36.0-47.0); HEMOGLOBIN 13.9 g/dl (12.0-15.5); LYMPH # 1.2 10^3/uL (1.5-5.0); LYMPH % 14.6 % (24.0-44.0); MEAN CORPUSCULAR HEMOGLOBIN 29.4 pg (27.0-33.0); MEAN CORPUSCULAR HGB CONC 31.1 g/dl (32.0-36.5); MEAN CORPUSCULAR VOLUME 94.5 fl (80.0-96.0); MONO % 11.7 % (2.0-8.0); NEUTROPHILS # 5.9 10^3/uL (1.5-8.5); NEUTROPHILS % 70.5 % (36.0-66.0); PLATELET COUNT, AUTOMATED 253 10^3/uL (150-450); RED BLOOD COUNT 4.73 10^6/uL (4.00-5.40); WHITE BLOOD COUNT 8.4 10^3/uL (4.0-10.0)
[2023-06-14 13:12] LABS: CREATININE, URINE 70.1 MG/DL; MAU/CREAT RATIO 21.3 MCG/MG (0.0-30.0)
[2023-06-14 13:44] LABS: THYROID STIMULATING HORMONE 3.133 uIU/ML (0.55-4.78); TOTAL 25(OH) VITAMIN D 25.9 NG/ML (20.0-100.0)
[2023-06-14 13:45] LABS: VITAMIN B12 LEVEL 396 PG/ML (211-911)
[2023-06-14 13:51] LABS: FREE T4 1.19 NG/DL (0.89-1.76)
[2023-06-14 13:52] LABS: ALBUMIN 3.1 G/DL (3.2-5.2); ALKALINE PHOSPHATASE 77 U/L (46-116); ALT/SGPT < 9 U/L (7.0-40); AST/SGOT 14 U/L (<34); BILIRUBIN,TOTAL 1.1 MG/DL (0.3-1.2); BLOOD UREA NITROGEN 13 MG/DL (9-23); CALCIUM LEVEL 8.6 MG/DL (8.3-10.6); CARBON DIOXIDE LEVEL 30 MMOL/L (20-31); CHLORIDE LEVEL 107 MMOL/L (98-107); CHOLESTEROL LEVEL 149 MG/DL (<200); CHOLESTEROL RISK RATIO 2.74 (<5); CREATININE FOR GFR 0.72 MG/DL (0.55-1.30); GLOMERULAR FILTRATION RATE > 60.0 (>32); GLUCOSE, FASTING 84 MG/DL (74-106); HDL CHOLESTEROL 54.3 MG/DL (>40); LDL CHOLESTEROL 66.1 MG/DL (<100); NON-HDL-C 94.7 MG/DL; POTASSIUM SERUM 3.9 MMOL/L (3.5-5.1); SODIUM LEVEL 140 MMOL/L (136-145); TOTAL PROTEIN 6.3 G/DL (5.7-8.2); TRIGLYCERIDES LEVEL 143 MG/DL (<150)
[2023-06-14 14:04] LABS: HEMOGLOBIN A1c 5.2 % (4.0-6.0)
== END ==
LOC: M PLALAB 09:04
PROVIDERS: ATTEND Internal Medicine Hematology
DX: R94.6 Abnormal results of thyroid function studies (principal); M81.0 Age-related osteoporosis without current pathological fracture; Z79.899 Other long term (current) drug therapy

== ENCOUNTER → 2023-06-20 | Outpatient (REF) | payer MEDICARE | LOC: M SFHCPLAZ 12:26 | PROVIDERS: ATTEND Internal Medicine Infectious Disease | DX: J47.9 Bronchiectasis, uncomplicated (principal) ==

== ENCOUNTER → 2023-06-23 | Outpatient (CLI) | payer MEDICARE | LOC: M WHC 10:56 | PROVIDERS: ATTEND Internal Medicine Hematology | DX: Z13.820 Encounter for screening for osteoporosis (principal); M85.851 Other specified disorders of bone density and structure, right thigh; M85.852 Other specified disorders of bone density and structure, left thigh; M85.88 Other specified disorders of bone density and structure, other site ==

== ENCOUNTER → 2023-06-24 | Outpatient (CLI) | payer MEDICARE | LOC: M PLAIMG 10:48 | PROVIDERS: ATTEND Internal Medicine Infectious Disease | DX: J47.9 Bronchiectasis, uncomplicated (principal); J98.11 Atelectasis ==

== ENCOUNTER → 2023-07-14 | Outpatient (CLI) | payer MEDICARE ==
[2023-07-14 16:35] LABS: BLOOD UREA NITROGEN 15 MG/DL (9-23); CALCIUM LEVEL 9.2 MG/DL (8.3-10.6); CARBON DIOXIDE LEVEL 30 MMOL/L (20-31); CHLORIDE LEVEL 104 MMOL/L (98-107); CREATININE FOR GFR 0.76 MG/DL (0.55-1.30); GLOMERULAR FILTRATION RATE > 60.0 (>32); GLUCOSE, FASTING 101 MG/DL (74-106); POTASSIUM SERUM 4.5 MMOL/L (3.5-5.1); SODIUM LEVEL 140 MMOL/L (136-145)
== END ==
LOC: M PLALAB 13:08
PROVIDERS: ATTEND Ophthalmology
DX: H02.423 Myogenic ptosis of bilateral eyelids (principal)

== ENCOUNTER → 2023-07-14 | Outpatient (REF) | payer MEDICARE | LOC: M SFHCPLAZ 14:59 | PROVIDERS: ATTEND Internal Medicine Infectious Disease | DX: J47.9 Bronchiectasis, uncomplicated (principal); R93.89 Abnormal findings on diagnostic imaging of other specified body structures ==

== ENCOUNTER → 2023-10-14 | Outpatient (CLI) | payer MEDICARE | LOC: M WUC 12:54 | PROVIDERS: ATTEND Physician Assistant | DX: M85.88 Other specified disorders of bone density and structure, other site (principal); M51.36 Other intervertebral disc degeneration, lumbar region; M25.552 Pain in left hip ==

== ENCOUNTER → 2023-11-28 | Outpatient (CLI) | payer MEDICARE | LOC: M PLAIMG 13:40 | PROVIDERS: ATTEND Internal Medicine Pulmonary Disease | DX: R91.8 Other nonspecific abnormal finding of lung field (principal) ==

== ENCOUNTER → 2023-12-14 | Outpatient (CLI) | payer MEDICARE ==
[2023-12-14 15:16] LABS: BASO % 0.3 % (0.0-1.0); EOS # 0.1 10^3/uL (0.0-0.5); HEMATOCRIT 45.7 % (36.0-47.0); HEMOGLOBIN 13.9 g/dl (12.0-15.5); LYMPH # 1.2 10^3/uL (1.5-5.0); MEAN CORPUSCULAR HEMOGLOBIN 29.6 pg (27.0-33.0); MEAN CORPUSCULAR HGB CONC 30.4 g/dl (32.0-36.5); MEAN CORPUSCULAR VOLUME 97.2 fl (80.0-96.0); MONO # 0.5 10^3/uL (0.0-0.8); MONO % 4.3 % (2.0-8.0); NEUTROPHILS # 9.9 10^3/uL (1.5-8.5); NEUTROPHILS % 83.7 % (36.0-66.0); PLATELET COUNT, AUTOMATED 252 10^3/uL (150-450); WHITE BLOOD COUNT 11.8 10^3/uL (4.0-10.0)
[2023-12-14 15:25] LABS: HEMOGLOBIN A1c 5.6 % (4.0-6.0)
[2023-12-14 15:47] LABS: MAU/CREAT RATIO 34.5 MCG/MG (0.0-30.0)
[2023-12-14 15:49] LABS: ALBUMIN 3.2 G/DL (3.2-5.2); ALKALINE PHOSPHATASE 95 U/L (46-116); ALT/SGPT 10 U/L (7.0-40); AST/SGOT 12 U/L (<34); BILIRUBIN,TOTAL 0.9 MG/DL (0.3-1.2); BLOOD UREA NITROGEN 14 MG/DL (9-23); CALCIUM LEVEL 9.4 MG/DL (8.3-10.6); CARBON DIOXIDE LEVEL 33 MMOL/L (20-31); CHLORIDE LEVEL 107 MMOL/L (98-107); CHOLESTEROL LEVEL 170 MG/DL (<200); CHOLESTEROL RISK RATIO 3.13 (<5); CREATININE FOR GFR 0.68 MG/DL (0.55-1.30); GLOMERULAR FILTRATION RATE > 60.0 (>32); GLUCOSE, FASTING 107 MG/DL (74-106); HDL CHOLESTEROL 54.3 MG/DL (>40); LDL CHOLESTEROL 86.1 MG/DL (<100); NON-HDL-C 115.7 MG/DL; POTASSIUM SERUM 4.5 MMOL/L (3.5-5.1); SODIUM LEVEL 143 MMOL/L (136-145); TOTAL PROTEIN 6.8 G/DL (5.7-8.2); TRIGLYCERIDES LEVEL 148 MG/DL (<150)
[2023-12-14 15:50] LABS: FREE T4 1.29 NG/DL (0.89-1.76); THYROID STIMULATING HORMONE 2.204 uIU/ML (0.55-4.78); VITAMIN B12 LEVEL 472 PG/ML (211-911)
[2023-12-14 15:51] LABS: TOTAL 25(OH) VITAMIN D 31.2 NG/ML (20.0-100.0)
== END ==
LOC: M PLALAB 11:11
PROVIDERS: ATTEND Internal Medicine Hematology
DX: R94.6 Abnormal results of thyroid function studies (principal)

== ENCOUNTER → 2024-01-02 | Outpatient (REF) | payer MEDICARE | LOC: M SFHCPLAZ 12:32 | PROVIDERS: ATTEND Internal Medicine Infectious Disease | DX: Z22.39 Carrier of other specified bacterial diseases (principal); Z31.0 Encounter for reversal of previous sterilization ==

== ENCOUNTER → 2024-02-26 | Outpatient (REF) | payer MEDICARE | LOC: M SFHCPLAZ 12:38 | PROVIDERS: ATTEND Internal Medicine Infectious Disease | DX: A31.0 Pulmonary mycobacterial infection (principal) ==

== ENCOUNTER → 2024-02-27 | Outpatient (CLI) | payer MEDICARE | LOC: M PLALAB 09:40 | PROVIDERS: ATTEND Internal Medicine Infectious Disease | DX: A31.0 Pulmonary mycobacterial infection (principal) ==

== ENCOUNTER → 2024-03-08 | Outpatient (CLI) | payer MEDICARE | LOC: M CARPUL 09:56 | PROVIDERS: ATTEND Physician Assistant | DX: I31.39 Other pericardial effusion (noninflammatory) (principal); I48.91 Unspecified atrial fibrillation; I27.20 Pulmonary hypertension, unspecified; I35.0 Nonrheumatic aortic (valve) stenosis; I35.1 Nonrheumatic aortic (valve) insufficiency; I08.0 Rheumatic disorders of both mitral and aortic valves ==

== ENCOUNTER 2024-04-05 03:19 | Inpatient (IN) | payer MEDICARE ==
[~2024-04-05] VITALS: Ht 165.1 cm; Wt 48.1 kg
[2024-04-05 04:03] LABS: BASO % 0.3 % (0.0-1.0); HEMATOCRIT 42.2 % (36.0-47.0); HEMOGLOBIN 13.6 g/dl (12.0-15.5); LYMPH # 0.8 10^3/uL (1.5-5.0); LYMPH % 8.7 % (24.0-44.0); MEAN CORPUSCULAR HEMOGLOBIN 29.2 pg (27.0-33.0); MEAN CORPUSCULAR HGB CONC 32.2 g/dl (32.0-36.5); MEAN CORPUSCULAR VOLUME 90.8 fl (80.0-96.0); MONO # 1.2 10^3/uL (0.0-0.8); MONO % 12.9 % (2.0-8.0); NEUTROPHILS # 7.3 10^3/uL (1.5-8.5); NEUTROPHILS % 77.4 % (36.0-66.0); PLATELET COUNT, AUTOMATED 167 10^3/uL (150-450); RED BLOOD COUNT 4.65 10^6/uL (4.00-5.40); WHITE BLOOD COUNT 9.4 10^3/uL (4.0-10.0)
[2024-04-05] MEDS ORDERED: ETHA1TAB2 PO (04:15)
[2024-04-05] MEDS ORDERED: RIFA1CAP9 PO (04:15)
[2024-04-05] MEDS ORDERED: AZIT-12 PO (04:15)
[2024-04-05 04:25] LABS: INR 1.25; PARTIAL THROMBOPLASTIN TIME 33.5 SECONDS (24.8-34.2)
[2024-04-05] MEDS: ACETAMINOPHEN *IV* 1,000 MG in IV 1 EA IV ONE (04:25)
[2024-04-05] MEDS: ONDANSETRON 4MG 2ML VIAL IV ONE (04:25)
[2024-04-05 04:27] LABS: VENOUS BASE EXCESS 1.9 (-2.0-2.0); VENOUS HCO3 27.9 MMOL/L (23.0-27.0); VENOUS O2 SATURATION 87.9 % (60.0-80.0); VENOUS PARTIAL PRESSURE CO2 48.7 mmHg (38.0-50.0); VENOUS PARTIAL PRESSURE O2 54.1 mmHg (30.0-50.0); VENOUS PH 7.376 UNITS (7.330-7.430); VENOUS STANDARD HCO3 25.9 MMOL/L; VENOUS TOTAL CO2 29.4 MMOL/L (24.0-28.0)
[2024-04-05 04:36] LABS: AMYLASE 264 U/L (30-118)
[2024-04-05 04:37] LABS: C REACTIVE PROTEIN QUANTITATIV 16.64 MG/DL (<1.0)
[2024-04-05 04:44] LABS: PROCALCITONIN 1.05 ng/ml
[2024-04-05 04:49] LABS: ALBUMIN 2.9 G/DL (3.2-5.2); ALKALINE PHOSPHATASE 106 U/L (35-104); ALT/SGPT 12 U/L (7.0-40); AST/SGOT 51 U/L (<34); BILIRUBIN,DIRECT 0.3 MG/DL (<0.4); BILIRUBIN,TOTAL 1.3 MG/DL (0.3-1.2); BLOOD UREA NITROGEN 20 MG/DL (9-23); CALCIUM LEVEL 8.4 MG/DL (8.3-10.6); CARBON DIOXIDE LEVEL 27 MMOL/L (20-31); CHLORIDE LEVEL 97 MMOL/L (98-107); GLOMERULAR FILTRATION RATE > 60.0 (>32); GLUCOSE, FASTING 100 MG/DL (74-106); SODIUM LEVEL 136 MMOL/L (136-145); TOTAL PROTEIN 6.7 G/DL (5.7-8.2)
[2024-04-05 06:02] LABS: CK-MB VALUE MASS 1.1 NG/ML (<3.6); CPK CREATINE PHOSPHOKINASE 400 U/L (34-145); MB/CK RELATIVE INDEX 0.27 (< OR =4)
[2024-04-05] MEDS: OSELTAMIVIR PHOSPHATE 75 MG CAP (TAMIFLU) PO ONE ×2 (06:38→21:03)
[2024-04-05 06:52] LABS: CK-MB VALUE MASS < 1.0 NG/ML (<3.6)
[2024-04-05 06:54] LABS: CPK CREATINE PHOSPHOKINASE 322 U/L (34-145); MB/CK RELATIVE INDEX 0.31 (< OR =4)
[2024-04-05 07:02] LABS: APPEARANCE, URINE HAZY (CLEAR); BACTERIA, URINE AUTO NEGATIVE (NEGATIVE); BILIRUBIN, URINE AUTO NEGATIVE (NEGATIVE); BLOOD, URINE BLOOD 3+ (NEGATIVE); COLOR, URINE AMBER (YELLOW); GLUCOSE, URINE (UA) AUTO NEGATIVE (NEGATIVE); KETONE, URINE AUTO 1+ mg/dL (NEGATIVE); LEUKOCYTE ESTERASE, URINE AUTO NEGATIVE (NEGATIVE); NITRITE, URINE AUTO NEGATIVE (NEGATIVE); PROTEIN, URINE AUTO 2+ mg/dL (NEGATIVE); RBC, URINE AUTO TNTC /HPF (0-3); SPECIFIC GRAVITY URINE AUTO 1.026 (1.002-1.035); SQUAMOUS EPITHELIAL CELL UR AU 3 /HPF (0-6); WBC, URINE AUTO 3 /HPF (0-3)
[2024-04-05] MEDS ORDERED: PRED10TA2 PO (08:01)
[2024-04-05] MEDS ORDERED: HOME MED LIST COMPLETE! XX SCH ×2 (08:05→08:20)
[2024-04-05] MEDS ORDERED: ISOVUE-370 76% 100ML VIAL As Ordered ONE (09:13)
[2024-04-05] MEDS ORDERED: IPRATROPIUM 0.5MG/ALBUTEROL 2.5MG INH SOL UD 3ML (DUONEB) NEB PRN (09:50)
[2024-04-05] MEDS ORDERED: MEGESTROL 400MG 10ML SUSP ORAL SYRINGE *DRAW UP EXACT DOSE PO PRN (09:55)
[2024-04-05] MEDS ORDERED: MAALOX 30 ML SUSP *UDC PO PRN (10:10)
[2024-04-05] MEDS ORDERED: MOM 30ML SUSPENSION UDC PO PRN (10:10)
[2024-04-05] MEDS ORDERED: PILL CUTTER 1 EACH XX PRN (10:15)
[2024-04-05] MEDS: CARVedilol 12.5 MG TAB PO SCH (10:54)
[2024-04-05] MEDS: APIXABAN 5 MG TAB (ELIQUIS) PO SCH (10:54)
[2024-04-05] MEDS: predniSONE 20 MG TAB PO SCH (12:32)
[2024-04-05] MEDS: IPRATROPIUM 0.5MG/ALBUTEROL 2.5MG INH SOL UD 3ML (DUONEB) NEB SCH (12:41)
[2024-04-05] MEDS: TIOTROPIUM INHALER/CAPSULE (SPIRIVA) INH SCH (12:59)
[2024-04-05 15:15] VITALS: BP 128/60; TEMP 97.9; O2SAT 90
[2024-04-05] MEDS: PIPERACILLIN/TAZOBACTAM SOD 4.5 GM in DEXTROSE 5% (D5W) ADV/MINI-BAG 50 ML IV SCH (15:20)
[2024-04-05 19:42] VITALS: BP 128/61; TEMP 97.7; O2SAT 92
[2024-04-05] MEDS: SIMVASTATIN 20 MG TAB PO SCH (21:04)
[2024-04-06 04:38] VITALS: BP 133/72; TEMP 97.7; O2SAT 94
[2024-04-06 06:53] LABS: HEMATOCRIT 39.9 % (36.0-47.0); HEMOGLOBIN 12.6 g/dl (12.0-15.5); LYMPH # 0.7 10^3/uL (1.5-5.0); LYMPH % 15.5 % (24.0-44.0); MEAN CORPUSCULAR HEMOGLOBIN 28.6 pg (27.0-33.0); MEAN CORPUSCULAR HGB CONC 31.6 g/dl (32.0-36.5); MEAN CORPUSCULAR VOLUME 90.7 fl (80.0-96.0); MONO # 0.6 10^3/uL (0.0-0.8); MONO % 13.9 % (2.0-8.0); NEUTROPHILS % 70.1 % (36.0-66.0); PLATELET COUNT, AUTOMATED 173 10^3/uL (150-450); WHITE BLOOD COUNT 4.3 10^3/uL (4.0-10.0)
[2024-04-06 07:16] LABS: ALBUMIN 2.5 G/DL (3.2-5.2); BLOOD UREA NITROGEN 22 MG/DL (9-23); CALCIUM LEVEL 8.3 MG/DL (8.3-10.6); CARBON DIOXIDE LEVEL 32 MMOL/L (20-31); CHLORIDE LEVEL 99 MMOL/L (98-107); CREATININE FOR GFR 0.77 MG/DL (0.55-1.30); GLOMERULAR FILTRATION RATE > 60.0 (>32); GLUCOSE, FASTING 95 MG/DL (74-106); MAGNESIUM LEVEL 2.2 MG/DL (1.8-2.4); PHOSPHORUS LEVEL 2.4 MG/DL (2.4-5.1); POTASSIUM SERUM 4.2 MMOL/L (3.5-5.1); SODIUM LEVEL 140 MMOL/L (136-145)
[2024-04-06] MEDS: RIFABUTIN 150 MG PO SCH (09:14)
[2024-04-06] MEDS: AZITHROMYCIN 250MG TABLET PO SCH (09:14)
[2024-04-06] MEDS: OSELTAMIVIR PHOSPHATE 30MG CAPSULE PO SCH (10:50)
[2024-04-06] MEDS: ETHAMBUTOL 400MG TAB PO SCH (10:51)
[2024-04-06] MEDS: CO-ENZYME Q10 50 MG CAP PO SCH (10:51)
[2024-04-06 12:31] VITALS: BP 134/71; TEMP 97.3; O2SAT 97
[2024-04-06 20:00] VITALS: BP 172/88; TEMP 96.8; O2SAT 90
[2024-04-07 04:00] VITALS: BP 177/87; TEMP 97.5; O2SAT 90
[2024-04-07 06:18] LABS: BASO % 0.2 % (0.0-1.0); EOS % 0.2 % (0.0-3.0); HEMATOCRIT 39.7 % (36.0-47.0); HEMOGLOBIN 12.5 g/dl (12.0-15.5); LYMPH # 0.9 10^3/uL (1.5-5.0); LYMPH % 16.5 % (24.0-44.0); MEAN CORPUSCULAR HEMOGLOBIN 28.9 pg (27.0-33.0); MEAN CORPUSCULAR HGB CONC 31.5 g/dl (32.0-36.5); MEAN CORPUSCULAR VOLUME 91.9 fl (80.0-96.0); MONO # 0.6 10^3/uL (0.0-0.8); MONO % 10.9 % (2.0-8.0); NEUTROPHILS # 3.9 10^3/uL (1.5-8.5); NEUTROPHILS % 71.3 % (36.0-66.0); PLATELET COUNT, AUTOMATED 196 10^3/uL (150-450); RED BLOOD COUNT 4.32 10^6/uL (4.00-5.40); WHITE BLOOD COUNT 5.5 10^3/uL (4.0-10.0)
[2024-04-07 06:48] LABS: ALBUMIN 2.6 G/DL (3.2-5.2); BLOOD UREA NITROGEN 23 MG/DL (9-23); CALCIUM LEVEL 8.7 MG/DL (8.3-10.6); CARBON DIOXIDE LEVEL 33 MMOL/L (20-31); CHLORIDE LEVEL 100 MMOL/L (98-107); CREATININE FOR GFR 0.81 MG/DL (0.55-1.30); GLOMERULAR FILTRATION RATE > 60.0 (>32); GLUCOSE, FASTING 89 MG/DL (74-106); PHOSPHORUS LEVEL 2.4 MG/DL (2.4-5.1); POTASSIUM SERUM 3.6 MMOL/L (3.5-5.1); SODIUM LEVEL 143 MMOL/L (136-145)
[2024-04-07 10:24] VITALS: BP 150/82
[2024-04-07] MEDS: LISINOPRIL *2.5 MG* TAB PO SCH (10:24)
[2024-04-07 10:25] VITALS: BP 150/82
[2024-04-07] MEDS: ACETAMINOPHEN 325 MG TAB PO PRN (10:30)
[2024-04-07 11:57] VITALS: BP 150/80; TEMP 98.1; O2SAT 93
[2024-04-07] MEDS ORDERED: OSEL30CA PO (12:54)
[2024-04-07] MEDS ORDERED: LEVO1TAB40 PO (12:54)
== END 2024-04-07 14:30 | disposition home health service (06) | DRG 177 ==
LOC: EDBD 03:19 → M ED 03:19 → M ED INP 08:56 → M MS5PR 15:10
PROVIDERS: ADMIT Internal Medicine; ATTEND Internal Medicine
DX: J10.08 Influenza due to other identified influenza virus with other specified pneumonia (principal); J15.1 Pneumonia due to Pseudomonas; J96.01 Acute respiratory failure with hypoxia; I48.21 Permanent atrial fibrillation; I24.89 Other forms of acute ischemic heart disease; I10 Essential (primary) hypertension; J47.9 Bronchiectasis, uncomplicated; J44.9 Chronic obstructive pulmonary disease, unspecified; I49.5 Sick sinus syndrome; E78.5 Hyperlipidemia, unspecified; Z95.0 Presence of cardiac pacemaker; Z86.73 Personal history of transient ischemic attack (TIA), and cerebral infarction without residual deficits; Z88.8 Allergy status to other drugs, medicaments and biological substances; Z79.899 Other long term (current) drug therapy; Z79.01 Long term (current) use of anticoagulants; M81.0 Age-related osteoporosis without current pathological fracture; Z98.41 Cataract extraction status, right eye; Z98.42 Cataract extraction status, left eye

== ENCOUNTER → 2024-04-24 | Outpatient (CLI) | payer MEDICARE ==
[~2024-04-24] MED LIST changes: +AZIT-12 PO; +ETHA1TAB2 PO; +MEGE400O7 PO; -MEGE40SU6 PO; +OSEL30CA PO; +PRED10TA2 PO; +RIFA1CAP9 PO
[2024-04-24 14:07] LABS: BASO % 0.2 % (0.0-1.0); EOS # 0.2 10^3/uL (0.0-0.5); EOS % 2.3 % (0.0-3.0); HEMOGLOBIN 13.5 g/dl (12.0-15.5); LYMPH % 9.9 % (24.0-44.0); MEAN CORPUSCULAR HEMOGLOBIN 29.3 pg (27.0-33.0); MEAN CORPUSCULAR HGB CONC 30.7 g/dl (32.0-36.5); MEAN CORPUSCULAR VOLUME 95.7 fl (80.0-96.0); MONO # 0.7 10^3/uL (0.0-0.8); MONO % 6.5 % (2.0-8.0); NEUTROPHILS # 8.4 10^3/uL (1.5-8.5); NEUTROPHILS % 80.5 % (36.0-66.0); PLATELET COUNT, AUTOMATED 264 10^3/uL (150-450); WHITE BLOOD COUNT 10.5 10^3/uL (4.0-10.0)
[2024-04-24 14:33] LABS: C REACTIVE PROTEIN QUANTITATIV 0.89 MG/DL (<1.0)
[2024-04-24 14:55] LABS: ALBUMIN 2.9 G/DL (3.2-5.2); ALKALINE PHOSPHATASE 90 U/L (35-104); ALT/SGPT 11 U/L (7.0-40); AST/SGOT 17 U/L (<34); BILIRUBIN,TOTAL 0.6 MG/DL (0.3-1.2); BLOOD UREA NITROGEN 16 MG/DL (9-23); CALCIUM LEVEL 8.9 MG/DL (8.3-10.6); CARBON DIOXIDE LEVEL 34 MMOL/L (20-31); CHLORIDE LEVEL 103 MMOL/L (98-107); CREATININE FOR GFR 0.69 MG/DL (0.55-1.30); GLOMERULAR FILTRATION RATE > 60.0 (>32); GLUCOSE, FASTING 103 MG/DL (74-106); POTASSIUM SERUM 4.3 MMOL/L (3.5-5.1); SODIUM LEVEL 145 MMOL/L (136-145); TOTAL PROTEIN 6.5 G/DL (5.7-8.2)
== END ==
LOC: M PLALAB 09:46
PROVIDERS: ATTEND Internal Medicine Infectious Disease
DX: A31.0 Pulmonary mycobacterial infection (principal)

== ENCOUNTER → 2024-07-25 | Outpatient (REF) | payer MEDICARE | LOC: M SFHCPLAZ 13:07 | PROVIDERS: ATTEND Internal Medicine Infectious Disease | DX: A31.0 Pulmonary mycobacterial infection (principal) ==

== ENCOUNTER → 2024-12-10 | Outpatient (REF) | payer MEDICARE | LOC: M SFHCPLAZ 10:17 | PROVIDERS: ATTEND Internal Medicine Infectious Disease | DX: A31.0 Pulmonary mycobacterial infection (principal) ==

== ENCOUNTER → 2024-12-14 | Outpatient (CLI) | payer MEDICARE | LOC: M PLALAB 09:11 | PROVIDERS: ATTEND Internal Medicine Infectious Disease | DX: A31.0 Pulmonary mycobacterial infection (principal) ==

== ENCOUNTER → 2024-12-14 | Outpatient (CLI) | payer MEDICARE ==
[2024-12-14 11:27] LABS: BASO # 0.0 10^3/uL (0.0-0.2); BASO % 0.5 % (0.0-1.0); EOS # 0.2 10^3/uL (0.0-0.5); EOS % 3.5 % (0.0-3.0); LYMPH # 1.0 10^3/uL (1.5-5.0); LYMPH % 16.6 % (24.0-44.0); MONO # 0.7 10^3/uL (0.0-0.8); MONO % 12.1 % (2.0-8.0); NEUTROPHILS # 4.0 10^3/uL (1.5-8.5); NEUTROPHILS % 66.6 % (36.0-66.0); PLATELET COUNT, AUTOMATED 238 10^3/uL (150-450)
[2024-12-14 11:50] LABS: ALT/SGPT 10.0 U/L (7.0-40); AST/SGOT 18.0 U/L (<34); CALCIUM LEVEL 9.1 MG/DL (8.3-10.6); CARBON DIOXIDE LEVEL 33.0 MMOL/L (20-31); CHLORIDE LEVEL 103.0 MMOL/L (98-107); CHOLESTEROL LEVEL 205.0 MG/DL (<200); CHOLESTEROL RISK RATIO 3.38 (<5); CREATININE FOR GFR 0.76 MG/DL (0.55-1.30); GLOMERULAR FILTRATION RATE 78.2 (>32); LDL CHOLESTEROL 110.7 MG/DL (<100); NON-HDL-C 144.5 MG/DL; POTASSIUM SERUM 4.3 MMOL/L (3.5-5.1); SODIUM LEVEL 145.0 MMOL/L (136-145); TRIGLYCERIDES LEVEL 169.0 MG/DL (<150)
[2024-12-14 11:51] LABS: TOTAL 25(OH) VITAMIN D 19.1 NG/ML (20.0-100.0)
== END ==
LOC: M PLALAB 09:13
PROVIDERS: ATTEND Family Medicine
DX: M81.0 Age-related osteoporosis without current pathological fracture (principal); E78.00 Pure hypercholesterolemia, unspecified; I49.5 Sick sinus syndrome; Z79.52 Long term (current) use of systemic steroids; J30.2 Other seasonal allergic rhinitis; I48.21 Permanent atrial fibrillation; G45.9 Transient cerebral ischemic attack, unspecified; A31.0 Pulmonary mycobacterial infection

== ENCOUNTER → 2025-02-11 | Outpatient (CLI) | payer MEDICARE ==
[~2025-02-11] MED LIST changes: +CIPR-249 PO; +VALA500T5 PO
== END ==
LOC: M PLAIMG 12:45
PROVIDERS: ATTEND Internal Medicine Infectious Disease
DX: Z22.39 Carrier of other specified bacterial diseases (principal); A31.0 Pulmonary mycobacterial infection; J84.10 Pulmonary fibrosis, unspecified; R91.8 Other nonspecific abnormal finding of lung field; Z95.0 Presence of cardiac pacemaker

== ENCOUNTER 2025-02-12 21:44 | Inpatient (IN) | payer MEDICARE ==
[~2025-02-12] VITALS: Ht 165.1 cm; Wt 50.0 kg
[~2025-02-12 21:44] MED LIST changes: -CIPR-249 PO; -VALA500T5 PO
[2025-02-12] MEDS: IPRATROPIUM 0.5 MG/ALBUTEROL 2.5 MG INH SOL UD 3 ML NEB PRN (22:24)
[2025-02-12 22:37] LABS: ABG BASE EXCESS -3.8 (-2.0-2.0); ABG HCO3 23.1 MMOL/L (22.0-26.0); ABG O2 SATURATION 96.4 % (95.0-99.0); ABG PARTIAL PRESSURE CO2 49.1 mmHg (35.0-45.0); ABG PARTIAL PRESSURE O2 98.5 mmHg (75.0-100.0); ABG STANDARD HCO3 21.3 MMOL/L. (22.0-26.0); ABG TOTAL CO2 24.6 MMOL/L (23.0-31.0); ABG pH (ARTERIAL) 7.290 UNITS (7.350-7.450)
[2025-02-12 22:44] LABS: BASO # 0.1 10^3/uL (0.0-0.2); BASO % 0.4 % (0.0-1.0); EOS # 0.2 10^3/uL (0.0-0.5); EOS % 1.5 % (0.0-3.0); LYMPH # 1.2 10^3/uL (1.5-5.0); LYMPH % 8.7 % (24.0-44.0); MONO # 0.9 10^3/uL (0.0-0.8); MONO % 6.6 % (2.0-8.0); NEUTROPHILS # 11.6 10^3/uL (1.5-8.5); NEUTROPHILS % 81.9 % (36.0-66.0); PLATELET COUNT, AUTOMATED 271 10^3/uL (150-450)
[2025-02-12 23:14] LABS: ALT/SGPT 9.0 U/L (7.0-40); AST/SGOT 17.0 U/L (<34); CALCIUM LEVEL 8.7 MG/DL (8.3-10.6); CARBON DIOXIDE LEVEL 30.0 MMOL/L (20-31); CHLORIDE LEVEL 103.0 MMOL/L (98-107); CK-MB VALUE MASS 2.9 NG/ML (<3.6); CPK CREATINE PHOSPHOKINASE 40.0 U/L (34-145); CREATININE FOR GFR 0.61 MG/DL (0.55-1.30); GLOMERULAR FILTRATION RATE 89.2 (>32); MB/CK RELATIVE INDEX 7.25 (< OR =4); POTASSIUM SERUM 4.0 MMOL/L (3.5-5.1); SODIUM LEVEL 141.0 MMOL/L (136-145)
[2025-02-12] MEDS ORDERED: ISOVUE-370 76% 100 ML VIAL As Ordered ONE (23:32)
[2025-02-13 00:39] LABS: CK-MB VALUE MASS 1.5 NG/ML (<3.6); CPK CREATINE PHOSPHOKINASE 47.0 U/L (34-145); MB/CK RELATIVE INDEX 3.19 (< OR =4)
[2025-02-13] MEDS ORDERED: ACETAMINOPHEN 325 MG TAB PO PRN (04:20)
[2025-02-13] MEDS ORDERED: MOM 30 ML SUSPENSION UDC PO PRN (04:20)
[2025-02-13] MEDS ORDERED: ONDANSETRON 4MG/2ML VIAL IV PRN (04:20)
[2025-02-13] MEDS: MEROPENEM 2 GM in SODIUM CHLORIDE 0.9% INJ 100 ML IV SCH (05:13)
[2025-02-13] MEDS: DOXYCYCLINE HYCLATE 100 MG in DEXTROSE 5% (D5W) MINI-BAG PLU 100 ML IV SCH (06:28)
[2025-02-13] MEDS ORDERED: VALA500T5 PO (08:11)
[2025-02-13] MEDS ORDERED: CIPR-249 PO (08:11)
[2025-02-13] MEDS ORDERED: HOME MED LIST COMPLETE! XX SCH (08:15)
[2025-02-13] MEDS ORDERED: APIXABAN 5 MG TAB PO SCH (09:00)
[2025-02-13] MEDS: IPRATROPIUM 0.5 MG/ALBUTEROL 2.5 MG INH SOL UD 3 ML NEB SCH (09:06)
[2025-02-13] MEDS: PANTOPRAZOLE 40MG TAB PO SCH (11:15)
[2025-02-13] MEDS: APIXABAN 2.5 MG TAB PO SCH (11:15)
[2025-02-13 15:30] VITALS: BP 133/65; TEMP 98; O2SAT 98
[2025-02-13 20:22] VITALS: BP 132/64; TEMP 97.5; O2SAT 99
[2025-02-14 00:37] VITALS: BP 118/59; TEMP 98.9; O2SAT 97
[2025-02-14 06:57] VITALS: BP 150/72; TEMP 98; O2SAT 98
[2025-02-14 07:54] LABS: PLATELET COUNT, AUTOMATED 262 10^3/uL (150-450)
[2025-02-14 08:28] LABS: ALT/SGPT < 9 U/L (7.0-40); AST/SGOT 16 U/L (<34); CALCIUM LEVEL 8.9 MG/DL (8.3-10.6); CARBON DIOXIDE LEVEL 32 MMOL/L (20-31); CHLORIDE LEVEL 102 MMOL/L (98-107); CREATININE FOR GFR 0.68 MG/DL (0.55-1.30); GLOMERULAR FILTRATION RATE 86.9 (>32); MAGNESIUM LEVEL 2.1 MG/DL (1.8-2.4); POTASSIUM SERUM 4.8 MMOL/L (3.5-5.1); SODIUM LEVEL 141 MMOL/L (136-145)
[2025-02-14] MEDS: PIPERACILLIN/TAZOBACTAM SOD 4.5 GM in DEXTROSE 5% (D5W) ADV/MINI-BAG 50 ML IV SCH (13:58)
[2025-02-14 14:00] VITALS: BP 133/61; TEMP 97.5; O2SAT 96
[2025-02-14] MEDS: SODIUM CHLORIDE HYPERTONIC 3% 4ML NEB SOL INH SCH (16:00)
[2025-02-14 20:00] VITALS: BP 157/80; TEMP 97.7; O2SAT 97
[2025-02-14] MEDS ORDERED: DOXYCYCLINE HYCLATE 100 MG TABLET PO SCH (21:00)
[2025-02-15 07:09] VITALS: BP 166/68; TEMP 98.1; O2SAT 99
[2025-02-15] MEDS: AZITHROMYCIN 250 MG TABLET PO SCH (08:57)
[2025-02-15] MEDS: ETHAMBUTOL 400 MG TAB PO SCH (08:58)
[2025-02-15 15:06] VITALS: BP 156/72; TEMP 98.1; O2SAT 94
[2025-02-15 19:23] VITALS: BP 164/72; TEMP 97.2; O2SAT 95
[2025-02-16 04:23] VITALS: BP 176/89; TEMP 98; O2SAT 95
[2025-02-16 07:30] VITALS: BP 110/62; TEMP 98.3; O2SAT 94
[2025-02-16 08:16] LABS: PLATELET COUNT, AUTOMATED 254 10^3/uL (150-450)
[2025-02-16 08:46] LABS: CALCIUM LEVEL 8.2 MG/DL (8.3-10.6); CARBON DIOXIDE LEVEL 36.0 MMOL/L (20-31); CHLORIDE LEVEL 99.0 MMOL/L (98-107); CREATININE FOR GFR 0.68 MG/DL (0.55-1.30); GLOMERULAR FILTRATION RATE 86.9 (>32); POTASSIUM SERUM 4.1 MMOL/L (3.5-5.1); SODIUM LEVEL 142.0 MMOL/L (136-145)
[2025-02-16 14:00] VITALS: BP 137/60; TEMP 98.5; O2SAT 96
[2025-02-16 19:31] VITALS: BP 143/67; TEMP 98.7; O2SAT 96
[2025-02-17 04:22] VITALS: BP 178/83; TEMP 98.5; O2SAT 97
[2025-02-17 06:45] LABS: PLATELET COUNT, AUTOMATED 278 10^3/uL (150-450)
[2025-02-17 07:10] LABS: CALCIUM LEVEL 8.4 MG/DL (8.3-10.6); CARBON DIOXIDE LEVEL 38.0 MMOL/L (20-31); CHLORIDE LEVEL 96.0 MMOL/L (98-107); CREATININE FOR GFR 0.72 MG/DL (0.55-1.30); GLOMERULAR FILTRATION RATE 83.4 (>32); POTASSIUM SERUM 3.5 MMOL/L (3.5-5.1); SODIUM LEVEL 140.0 MMOL/L (136-145)
[2025-02-17 08:04] VITALS: BP 177/90; TEMP 98.7; O2SAT 97
[2025-02-17 14:00] VITALS: BP 129/59; TEMP 98.3; O2SAT 95
[2025-02-17 19:35] VITALS: BP 152/72; TEMP 98.1; O2SAT 94
[2025-02-18 04:12] VITALS: BP 180/100; TEMP 98; O2SAT 91
[2025-02-18 04:31] VITALS: BP 175/90
[2025-02-18 06:46] LABS: PLATELET COUNT, AUTOMATED 287 10^3/uL (150-450)
[2025-02-18 07:09] LABS: CALCIUM LEVEL 8.3 MG/DL (8.3-10.6); CARBON DIOXIDE LEVEL 35.0 MMOL/L (20-31); CHLORIDE LEVEL 96.0 MMOL/L (98-107); CREATININE FOR GFR 0.73 MG/DL (0.55-1.30); GLOMERULAR FILTRATION RATE 82.1 (>32); POTASSIUM SERUM 3.4 MMOL/L (3.5-5.1); SODIUM LEVEL 141.0 MMOL/L (136-145)
[2025-02-18] MEDS: POTASSIUM CHLORIDE 10MEQ SR TABLET PO ONE (08:13)
[2025-02-18 08:30] VITALS: O2SAT 97
[2025-02-18 08:33] VITALS: O2SAT 95
[2025-02-18 14:00] VITALS: BP 120/59; TEMP 98.1; O2SAT 92
[2025-02-18] MEDS: NYSTATIN 500,000 UNITS/5 ML SUSP UDC SS SCH (18:22)
[2025-02-18 20:43] VITALS: BP 154/70; TEMP 98.2; O2SAT 92
[2025-02-19 04:43] VITALS: BP 188/86; TEMP 98.7; O2SAT 93
[2025-02-19 06:23] VITALS: BP 185/90
[2025-02-19 07:45] LABS: PLATELET COUNT, AUTOMATED 274 10^3/uL (150-450)
[2025-02-19 08:17] LABS: CALCIUM LEVEL 8.2 MG/DL (8.3-10.6); CARBON DIOXIDE LEVEL 34.0 MMOL/L (20-31); CHLORIDE LEVEL 98.0 MMOL/L (98-107); CREATININE FOR GFR 0.82 MG/DL (0.55-1.30); GLOMERULAR FILTRATION RATE 71.4 (>32); POTASSIUM SERUM 3.8 MMOL/L (3.5-5.1); SODIUM LEVEL 141.0 MMOL/L (136-145)
[2025-02-19] MEDS: predniSONE 20 MG TAB PO SCH (08:43)
[2025-02-19 08:44] VITALS: BP 118/60
[2025-02-19] MEDS ORDERED: PRED10TA2 PO (12:34)
[2025-02-19 14:00] VITALS: BP 137/67; TEMP 98.4; O2SAT 88
[2025-02-19 20:51] VITALS: BP 151/79; TEMP 97.3; O2SAT 96
[2025-02-20 06:17] VITALS: BP 163/85; TEMP 98.3; O2SAT 87
[2025-02-20 07:42] LABS: PLATELET COUNT, AUTOMATED 236 10^3/uL (150-450)
[2025-02-20 08:00] VITALS: BP 151/69; TEMP 100.7; O2SAT 93
[2025-02-20 08:18] LABS: CALCIUM LEVEL 7.9 MG/DL (8.3-10.6); CARBON DIOXIDE LEVEL 32.0 MMOL/L (20-31); CHLORIDE LEVEL 100.0 MMOL/L (98-107); CREATININE FOR GFR 0.71 MG/DL (0.55-1.30); GLOMERULAR FILTRATION RATE 84.8 (>32); POTASSIUM SERUM 3.3 MMOL/L (3.5-5.1); SODIUM LEVEL 144.0 MMOL/L (136-145)
[2025-02-20 08:40] LABS: C REACTIVE PROTEIN QUANTITATIV 1.2 MG/DL (<1.0)
[2025-02-20 10:35] VITALS: TEMP 99.6
[2025-02-20] MEDS: PIPERACILLIN/TAZOBACTAM SOD 4.5 GM in DEXTROSE 5% (D5W) ADV/MINI-BAG 50 ML IV SCH (11:12)
[2025-02-20] MEDS: POTASSIUM CHLORIDE 10MEQ SR TABLET PO ONE (11:15)
[2025-02-20 11:16] LABS: MAGNESIUM LEVEL 2.2 MG/DL (1.8-2.4)
[2025-02-20 12:00] VITALS: BP 123/63; TEMP 98.2; O2SAT 94
[2025-02-20 20:27] VITALS: BP 119/64; TEMP 97.6; O2SAT 95
[2025-02-21 06:07] VITALS: BP 163/80; TEMP 98.1; O2SAT 94
[2025-02-21 08:22] LABS: PLATELET COUNT, AUTOMATED 242 10^3/uL (150-450)
[2025-02-21 08:46] LABS: CALCIUM LEVEL 8.1 MG/DL (8.3-10.6); CARBON DIOXIDE LEVEL 36.0 MMOL/L (20-31); CHLORIDE LEVEL 100.0 MMOL/L (98-107); CREATININE FOR GFR 0.76 MG/DL (0.55-1.30); GLOMERULAR FILTRATION RATE 78.2 (>32); POTASSIUM SERUM 3.5 MMOL/L (3.5-5.1); SODIUM LEVEL 143.0 MMOL/L (136-145)
[2025-02-21 08:47] VITALS: BP 153/72; TEMP 98.8; O2SAT 92
[2025-02-21 14:00] VITALS: BP 126/61; TEMP 97.9; O2SAT 97
[2025-02-21 16:20] LABS: RSV AMPLIFICATION NEGATIVE (NEGATIVE)
[2025-02-21 20:21] VITALS: BP 119/58; TEMP 98; O2SAT 98
[2025-02-22 03:10] VITALS: BP 146/77; TEMP 98.4; O2SAT 95
[2025-02-22 06:26] LABS: PLATELET COUNT, AUTOMATED 240 10^3/uL (150-450)
[2025-02-22 07:05] LABS: CALCIUM LEVEL 8.2 MG/DL (8.3-10.6); CARBON DIOXIDE LEVEL 34.0 MMOL/L (20-31); CHLORIDE LEVEL 102.0 MMOL/L (98-107); CREATININE FOR GFR 0.83 MG/DL (0.55-1.30); GLOMERULAR FILTRATION RATE 70.3 (>32); POTASSIUM SERUM 4.0 MMOL/L (3.5-5.1); SODIUM LEVEL 143.0 MMOL/L (136-145)
[2025-02-22 08:09] VITALS: BP 142/68
[2025-02-22] MEDS ORDERED: PILL CUTTER 1 EACH XX ONE (08:17)
[2025-02-22 08:18] VITALS: BP 142/68; TEMP 98.4; O2SAT 97
== END 2025-02-22 08:51 | disposition home or self-care (01) | DRG 177 ==
LOC: M ED 21:44 → M ED INP 02-13 04:16 → M MS5PR 02-13 15:18
PROVIDERS: ADMIT Internal Medicine; ATTEND Internal Medicine
DX: J15.1 Pneumonia due to Pseudomonas (principal); J96.01 Acute respiratory failure with hypoxia; I48.21 Permanent atrial fibrillation; J47.1 Bronchiectasis with (acute) exacerbation; B37.0 Candidal stomatitis; A31.0 Pulmonary mycobacterial infection; I10 Essential (primary) hypertension; J44.9 Chronic obstructive pulmonary disease, unspecified; E78.5 Hyperlipidemia, unspecified; Z79.52 Long term (current) use of systemic steroids; Z95.0 Presence of cardiac pacemaker; Z79.01 Long term (current) use of anticoagulants; Z88.8 Allergy status to other drugs, medicaments and biological substances; Z79.899 Other long term (current) drug therapy; Z86.73 Personal history of transient ischemic attack (TIA), and cerebral infarction without residual deficits